=== PATIENT | male | born 1975 | race Caucasian/White ===

== ENCOUNTER 2020-08-09 19:14 | Emergency (ER) | payer SELFPAY ==
[2020-08-09] MEDS ORDERED: IBUPROFEN 400 MG TAB ONE (20:16)
--- NOTE | 2020-08-09 21:18 | ER ---
Nurse's Notes [facility] Name: Ankur Owens Age: 44 yrs Sex: Male : 1975 Arrival Date: 08/09/2020 Time: 19:17 Bed 2 Private MD: Diagnosis: Pain in right wrist-from fall Presentation: 08/09 19:36 Chief complaint: Patient states: Tripped last night. R wrist pain since. No LOC or head ll1 injury. Coronavirus screen: Client denies travel out of the [place] in the last 14 days. At this time, the client does not indicate any symptoms associated with coronavirus-19. Ebola Screen: Patient denies travel to an Ebola-affected area in the 21 days before illness onset. Initial Sepsis Screen: Does the patient meet any 2 criteria? HR > 90 bpm. No. Patient's initial sepsis screen is negative. Does the patient have a suspected source of infection? Yes: Bone or joint infection. Risk Assessment: Do you want to hurt yourself or someone else? Patient reports no desire to harm self or others. Onset of symptoms was August 08, 2020. 19:36 Method Of Arrival: Ambulatory ll1 19:36 Acuity: MELI 4 ll1 Historical: - Allergies: 19:38 No Known Allergies; ll1 - PMHx: 19:38 [place]; ll1 - PSHx: 19:38 Appendectomy; ll1 - Immunization history:: Flu vaccine is up to date. - Social history:: Smoking status: Reported history of juuling and/or vaping. Patient/guardian denies using tobacco. Screenin:24 Abuse screen: Denies threats or abuse. Denies injuries from another. Nutritional lp1 screening: No deficits noted. Tuberculosis screening: No symptoms or risk factors identified. Fall Risk None identified. Assessment: 20:05 General: Appears in no apparent distress. Behavior is calm, cooperative, appropriate lp1 for age. Pain: Complains of pain in lateral aspect of right hand and dorsal aspect of right wrist Pain currently is 6 out of 10 on a pain scale. Quality of pain is described as aching. Neuro: No deficits noted. Cardiovascular: No deficits noted. Respiratory: No deficits noted. GI: No signs and/or symptoms were reported involving the gastrointestinal system. : No signs and/or symptoms were reported regarding the genitourinary system. EENT: No signs and/or symptoms were reported regarding the EENT system. Derm: Skin is pink, warm \T\ dry. Musculoskeletal: Swelling present in lateral aspect of right hand and dorsal aspect of right wrist. 20:50 Reassessment: Patient reports pain continued to right wrist, no relief with medication lp1 administered; Provider notified. 21:55 Reassessment: Splint checked by KOLE Phillips. lp1 Vital Signs: 19:36 BP 135 / 77; Pulse 90; Resp 18; Temp 98.0; Pulse Ox 100% ; Weight 97.52 kg; Height 5 ll1 ft. 10 in. (177.80 cm); Pain 7/10; 19:36 Body Mass Index 30.85 (97.52 kg, 177.80 cm) ll1 ED Course: 19:17 Patient arrived in ED. ag3 19:38 Triage completed. ll1 19:38 Arm band placed on Patient placed in an exam room, on a stretcher. ll1 19:42 Addi Samano PA is PHCP. cp 19:42 Catalino Hughes MD is Attending Physician. cp 20:00 Karen Garcia RN is Primary Nurse. lp1 20:24 Patient has correct armband on for positive identification. lp1 20:24 No provider procedures requiring assistance completed. Patient did not have IV access lp1 during this emergency room visit. 20:45 XRAY Wrist RIGHT 3 view In Process Unspecified. EDMS 21:16 River Roland MD is Referral Physician. cp 21:48 Orthoglass splint: Thumb spica splint applied on right forearm. oe Administered Medications: 20:05 Drug: Ibuprofen 800 mg Route: PO; lp1 20:50 Follow up: Response: Pain is unchanged, physician notified lp1 Outcome: 21:17 Discharge ordered by . cp 21:55 Discharged to home ambulatory. lp1 21:55 Condition: good 21:55 Discharge instructions given to patient, Instructed on discharge instructions, follow up and referral plans. medication usage, Demonstrated understanding of instructions, follow-up care, medications, Prescriptions given X 1. 21:56 Patient left the ED. lp1 Signatures: Dispatcher [employer] EDID Kaern Garcia RN RN lp1 Addi Samano PA PA cp Aj, MattElizabeth Johnson ag3 Kin Cochran, RN RN ll1
--- NOTE | 2020-08-09 21:18 | EDPHYS ---
Physician Documentation [facility] Name: Ankur Owens Age: 44 yrs Sex: Male : 1975 Arrival Date: 08/09/2020 Time: 19:17 Bed 2 Private MD: ED Physician Catalino Hughes HPI: 08/09 20:05 This 44 yrs old Male presents to ER via Ambulatory with complaints of Wrist cp Pain. 20:05 The patient or guardian reports pain, swelling, tenderness. The complaints affect the cp right wrist diffusely. Context: resulted from a fall, on an outstretched hand. Onset: The symptoms/episode began/occurred today. Historical: - Allergies: 19:38 No Known Allergies; ll1 - PMHx: 19:38 [place]; ll1 - PSHx: 19:38 Appendectomy; ll1 - Immunization history:: Flu vaccine is up to date. - Social history:: Smoking status: Reported history of juuling and/or vaping. Patient/guardian denies using tobacco. ROS: 20:15 MS/extremity: Positive for pain, swelling, tenderness, of the right wrist, Negative for cp decreased range of motion, deformity. 20:15 Constitutional: Negative for body aches, chills, fever. cp 20:15 Skin: Negative for rash. 20:15 All other systems are negative. Exam: 20:25 Hand exam: Exam is positive for bony tenderness, pain, snuff box/scaphoid tenderness, cp swelling, tenderness. 20:25 Skin: cellulitis, is not appreciated, no rash present. cp 20:25 Constitutional: The patient appears in no acute distress, alert, awake, non-toxic, well developed, well nourished. Vital Signs: 19:36 BP 135 / 77; Pulse 90; Resp 18; Temp 98.0; Pulse Ox 100% ; Weight 97.52 kg; Height 5 ll1 ft. 10 in. (177.80 cm); Pain 7/10; 19:36 Body Mass Index 30.85 (97.52 kg, 177.80 cm) ll1 Procedures: 21:55 Splinting: Splint applied to right wrist using Orthoglass splint, thumb spica type. cp applied by tech. Examined by me, post splint application: neurovascular intact, Patient tolerated well. MDM: 19:57 Patient medically screened. cp 21:00 Differential diagnosis: dislocation, closed fracture, contusion. cp 21:15 Data reviewed: vital signs, nurses notes, radiologic studies, plain films, and as a cp result, I will discharge patient. 21:16 Test interpretation: by ED physician or midlevel provider: xrays of right wrist cp negative for acute fracture. 21:16 Counseling: I had a detailed discussion with the patient and/or guardian regarding: the cp historical points, exam findings, and any diagnostic results supporting the discharge/admit diagnosis, radiology results, the need for outpatient follow up, a hand specialist, to return to the emergency department if symptoms worsen or persist or if there are any questions or concerns that arise at home. 08/09 20:00 Order name: XRAY Wrist RIGHT 3 view cp 08/09 21:00 Order name: Thumb Spica Splint: right, orthoglass type; Complete Time: 21:56 cp Administered Medications: 20:05 Drug: Ibuprofen 800 mg Route: PO; lp1 20:50 Follow up: Response: Pain is unchanged, physician notified lp1 Disposition: 22:00 Chart complete. cp Disposition: 08/09/20 21:17 Discharged to Home. Impression: Pain in right wrist - from fall. - Condition is Stable. - Discharge Instructions: Wrist Pain. - Prescriptions for Naprosyn 500 mg Oral Tablet - take 1 tablet by ORAL route 2 times per day take with food; 20 tablet. - Medication Reconciliation Form, Thank You Letter, Antibiotic Education, Prescription Opioid Use, School release form, Work release form form. - Follow up: River Roland MD; When: 2 - 3 days; Reason: Recheck today's complaints. - Problem is new. - Symptoms have improved. Addendum: 08/11/2020 02:54 Co-signature as Attending Physician, Catalino Hughes MD. m h7 Signatures: Dispatcher [employer] EDMS Karen Garcia RN RN lp1 Addi Samano PA PA cp Kin Cochran RN RN ll1 Catalino Hughes MD MD mh7 Corrections: (The following items were deleted from the chart) 08/09 21:00 20:59 Splint - Wrist ordered. cp cp 21:56 21:17 08/09/2020 21:17 Discharged to Home. Impression: Pain in right wrist - from fall. lp1 Condition is Stable. Forms are Medication Reconciliation Form, Thank You Letter, Antibiotic Education, Prescription Opioid Use. Follow up: River Roland; When: 2 - 3 days; Reason: Recheck today's complaints. Problem is new. Symptoms have improved. cp
--- NOTE | 2020-08-09 22:57 | RAD REPORT ---
EXAM DESCRIPTION: RAD - Wrist Right 3 View - 08/09/2020 8:45 pm CLINICAL HISTORY: fall;Pain COMPARISON: No comparisons FINDINGS: Faint transverse lucent line is present in the distal radius. No periosteal reaction. No h istory of remote wrist fracture provided. There is an old ununited ulna styloid fracture. No distract ion or angulation at the suspected distal radius fracture site. No foreign body or other soft tissue abnormality. IMPRESSION: Suspected acute nondisplaced fracture involving the distal right radius near the radial styloid.
[2020-08-12 04:04] VITALS: BP 135/77; TEMP 98; O2SAT 100
== END 2020-08-09 21:56 | disposition home or self-care (01) ==
LOC: ER 19:14
DX: M25.531 Pain in right wrist (principal); W01.0XXA Fall on same level from slipping, tripping and stumbling without subsequent striking against object, initial encounter; Y93.9 Activity, unspecified; Y92.9 Unspecified place or not applicable; Z87.891 Personal history of nicotine dependence
CPT/HCPCS: 99284

== ENCOUNTER 2020-12-19 09:42 | Emergency (ER) | payer SELFPAY ==
[2020-12-19 11:25] LABS: Absolute Lymphocytes (CBC) 2.3 K/uL (0.7-4.9); Basophils % 0.4 % (0-1.3); Hematocrit 40.5 % (39.6-49.0); Lymphocytes % 25.9 % (15.3-44.8); MPV 7.9 fL (7.6-11.3); RBC Red Blood Cell Count 4.45 M/uL (4.33-5.43)
[2020-12-19 11:44] LABS: BUN Blood Urea Nitrogen 18 mg/dL (7-18); Bicarbonate 27 mmol/L (21-32); Glucose Level 91 mg/dL (74-106); Potassium 4.2 mmol/L (3.5-5.1); Sodium Level 137 mmol/L (136-145); Thyroid Stimulating Hormone 0.966 uIU/mL (0.360-3.740)
--- NOTE | 2020-12-19 12:20 | ER ---
Nurse's Notes [facility] Name: Ankur Owens Age: 45 yrs Sex: Male : 1975 Arrival Date: 12/19/2020 Time: 09:46 Bed 14 Private MD: Diagnosis: Essential (primary) hypertension Presentation: 12/19 09:52 Chief complaint: Sent from Dr. Leung's office for BP 148/108. Coronavirus screen: At this time, the client does not indicate any symptoms associated with coronavirus-19. Ebola Screen: No symptoms or risks identified at this time. Initial Sepsis Screen: Does the patient meet any 2 criteria? No. Patient's initial sepsis screen is negative. Does the patient have a suspected source of infection? No. Patient's initial sepsis screen is negative. Risk Assessment: Do you want to hurt yourself or someone else? Patient reports no desire to harm self or others. Onset of symptoms was December 19, 2020. 09:52 Method Of Arrival: Ambulatory hb 09:52 Acuity: MELI 3 hb Historical: - Allergies: 09:55 No Known Allergies; hb - PMHx: 09:55 [place]; hb - PSHx: 09:55 Appendectomy; hb - Immunization history:: Adult Immunizations up to date. - Social history:: Smoking status: Reported history of juuling and/or vaping. Screenin:48 Abuse screen: Denies threats or abuse. Denies injuries from another. Nutritional ca1 screening: No deficits noted. Tuberculosis screening: No symptoms or risk factors identified. Fall Risk IV access (20 points). Assessment: 10:31 General: Appears in no apparent distress. comfortable, Behavior is calm, cooperative, ca1 appropriate for age. Pain: Denies pain. Neuro: Level of Consciousness is awake, alert, obeys commands, Oriented to person, place, time, situation. Cardiovascular: Heart tones S1 S2 present Capillary refill < 3 seconds Patient's skin is warm and dry. Respiratory: Airway is patent Respiratory effort is even, unlabored, Respiratory pattern is regular, symmetrical, Breath sounds are clear bilaterally. GI: Abdomen is flat, non-distended, Bowel sounds present X 4 quads. Abd is soft and non tender X 4 quads. : No signs and/or symptoms were reported regarding the genitourinary system. EENT: No signs and/or symptoms were reported regarding the EENT system. Derm: Skin is intact, is healthy with good turgor, Skin is pink, warm \T\ dry. Musculoskeletal: Circulation, motion, and sensation intact. Capillary refill < 3 seconds. 11:37 Reassessment: Patient appears in no apparent distress at this time. Patient and/or ca1 family updated on plan of care and expected duration. Pain level reassessed. Patient is alert, oriented x 3, equal unlabored respirations, skin warm/dry/pink. 12:26 Reassessment: Patient appears in no apparent distress at this time. Patient is alert, ca1 oriented x 3, equal unlabored respirations, skin warm/dry/pink. 12:33 Reassessment: Patient appears in no apparent distress at this time. Patient is alert, ca1 oriented x 3, equal unlabored respirations, skin warm/dry/pink. Vital Signs: 09:52 BP 147 / 109; Pulse 82; Resp 16; Temp 97.2; Pulse Ox 98% on R/A; Weight 94.35 kg; hb Height 5 ft. 10 in. (177.80 cm); Pain 0/10; 10:31 BP 119 / 87; Pulse 97; Resp 18 S; Pulse Ox 100% on R/A; ca1 11:39 BP 109 / 74; Pulse 82; Resp 18 S; Pulse Ox 99% on R/A; ca1 12:33 BP 128 / 81; Pulse 83; Resp 18 S; Pulse Ox 100% on R/A; ca1 09:52 Body Mass Index 29.84 (94.35 kg, 177.80 cm) hb ED Course: 09:46 Patient arrived in ED. as 09:54 Triage completed. hb 09:55 Arm band placed on. hb 10:31 Brianda Zeng, MAHESH is Primary Nurse. ca1 10:38 Katherine Pierson FNP-C is PHCP. kb 10:38 Addi Mckeon MD is Attending Physician. kb 10:48 Patient has correct armband on for positive identification. Placed in gown. Bed in low ca1 position. Call light in reach. Side rails up X 1. Pulse ox on. NIBP on. Warm blanket given. 11:12 No provider procedures requiring assistance completed. Initial lab(s) drawn, by ca, ca1 sent to lab. Inserted saline lock: 20 gauge in right antecubital area, using aseptic technique. Blood collected. 12:34 IV discontinued, intact, bleeding controlled, No redness/swelling at site. Pressure ca1 dressing applied. Administered Medications: No medications were administered Outcome: 12: Discharge ordered by MD. hendricks :34 Discharged to home ambulatory. ca1 12:34 Condition: stable 12:34 Discharge instructions given to patient, Instructed on discharge instructions, follow up and referral plans. Demonstrated understanding of instructions, follow-up care. 12:34 Patient left the ED. ca1 Signatures: Katherine Pierson, EMILIANO-Marianna CUMMINGS-Elza Woods as Ngozi Carlos, RN RN Brianda Zeng RN RN ca1
--- NOTE | 2020-12-19 12:20 | EDPHYS ---
Physician Documentation [facility] Name: Ankur Owens Age: 45 yrs Sex: Male : 1975 Arrival Date: 12/19/2020 Time: 09:46 Bed 14 Private MD: NICOLLE Physician Addi Mckeon HPI: 12/19 16:03 This 45 yrs old Male presents to ER via Ambulatory with complaints of High kb Blood Pressure. 16:03 The patient has elevated blood pressure and discovered this at a physician's office, kb and sent to the emergency department for evaluation. Onset: The symptoms/episode began/occurred today. Associated signs and symptoms: The patient has no apparent associated signs or symptoms. Severity of symptoms: At its worst the blood pressure was moderate, in the emergency department the blood pressure is unchanged. The patient has experienced similar episodes in the past, a few times. The patient has been recently seen by a physician:. Pt was at Dr Leung's office for normal check up and his blood pressure was high so they sent him here. . Historical: - Allergies: 09:55 No Known Allergies; hb - PMHx: 09:55 [place]; hb - PSHx: 09:55 Appendectomy; hb - Immunization history:: Adult Immunizations up to date. - Social history:: Smoking status: Reported history of juuling and/or vaping. ROS: 16:00 Constitutional: Negative for fever, chills, and weight loss, Eyes: Negative for injury, kb pain, redness, and discharge, Cardiovascular: Negative for chest pain, palpitations, and edema, Respiratory: Negative for shortness of breath, cough, wheezing, and pleuritic chest pain, Abdomen/GI: Negative for abdominal pain, nausea, vomiting, diarrhea, and constipation, MS/Extremity: Negative for injury and deformity, Skin: Negative for injury, rash, and discoloration, Neuro: Negative for headache, weakness, numbness, tingling, and seizure. Exam: 16:00 Constitutional: This is a well developed, well nourished patient who is awake, alert, kb and in no acute distress. Head/Face: Normocephalic, atraumatic. Cardiovascular: Regular rate and rhythm with a normal S1 and S2. No gallops, murmurs, or rubs. No pulse deficits. Respiratory: Respirations even and unlabored. No increased work of breathing, no retractions or nasal flaring. Abdomen/GI: Soft, non-tender. No distention Skin: Warm, dry with normal turgor. Normal color. MS/ Extremity: Pulses equal, no cyanosis. Neurovascular intact. Full, normal range of motion. Neuro: Awake and alert, GCS 15, oriented to person, place, time, and situation. Moves all extremities. Normal gait. 16:00 ECG was reviewed by the Attending Physician. Vital Signs: 09:52 BP 147 / 109; Pulse 82; Resp 16; Temp 97.2; Pulse Ox 98% on R/A; Weight 94.35 kg; hb Height 5 ft. 10 in. (177.80 cm); Pain 0/10; 10:31 BP 119 / 87; Pulse 97; Resp 18 S; Pulse Ox 100% on R/A; ca1 11:39 BP 109 / 74; Pulse 82; Resp 18 S; Pulse Ox 99% on R/A; ca1 12:33 BP 128 / 81; Pulse 83; Resp 18 S; Pulse Ox 100% on R/A; ca1 09:52 Body Mass Index 29.84 (94.35 kg, 177.80 cm) hb MDM: 10:38 Patient medically screened. kb 16:00 Data reviewed: vital signs, nurses notes. Data interpreted: Pulse oximetry: on room air kb is 100 %. Interpretation: normal. Counseling: I had a detailed discussion with the patient and/or guardian regarding: the historical points, exam findings, and any diagnostic results supporting the discharge/admit diagnosis, lab results, the need for outpatient follow up, a family practitioner, to return to the emergency department if symptoms worsen or persist or if there are any questions or concerns that arise at home. 12/19 10:54 Order name: CBC with Diff; Complete Time: 11:42 kb 12/19 10:54 Order name: Basic Metabolic Panel; Complete Time: 11:52 kb 12/19 10:54 Order name: TSH; Complete Time: 11:52 kb 12/19 10:54 Order name: IV Start; Complete Time: 11:13 kb 12/19 10:54 Order name: EKG; Complete Time: 10:55 kb 12/19 10:54 Order name: EKG - Nurse/Tech; Complete Time: 11:47 kb EC:00 Rate is 80 beats/min. Rhythm is regular. QRS [place] is Normal. [place] interval is normal at kb 162 msec. QRS interval is normal at 86 msec. QT interval is normal at 374 msec. Administered Medications: No medications were administered Disposition: 12/20 08:03 Co-signature as Attending Physician, Adid Mckeon MD I agree with the assessment and [facility] plan of care. Disposition: 12/19/20 12:19 Discharged to Home. Impression: Essential (primary) hypertension. - Condition is Stable. - Discharge Instructions: Hypertension, [id number], How to Take Your Blood Pressure, [id number]. - Medication Reconciliation Form, Thank You Letter, Antibiotic Education, Prescription Opioid Use form. - Follow up: Emergency Department; When: As needed; Reason: Worsening of condition. Follow up: Private Physician; When: 2 - 3 days; Reason: Recheck today's complaints, Continuance of care, Re-evaluation by your physician. Signatures: Dispatcher [employer] EDPA Katherine Pierson, ORE MINER BLASTING-C ORE MINER BLASTING-Addi Lord MD MD cha Baxter, Heather, MAHESH RN Brianda Zeng RN RN ca1 Corrections: (The following items were deleted from the chart) 12/19 12:34 12:19 12/19/2020 12:19 Discharged to Home. Impression: Essential (primary) ca1 hypertension. Condition is Stable. Forms are Medication Reconciliation Form, Thank You Letter, Antibiotic Education, Prescription Opioid Use. Follow up: Emergency Department; When: As needed; Reason: Worsening of condition. Follow up: Private Physician; When: 2 - 3 days; Reason: Recheck today's complaints, Continuance of care, Re-evaluation by your physician. kb
[2020-12-19 13:00] VITALS: TEMP 97.2
[2020-12-19 13:04] VITALS: BP 128/81; O2SAT 100
--- NOTE | 2020-12-20 07:24 | EKG ---
Test Date: 2020-12-19 Test Time: 11:45:[address] Liaison: ALEIDA MEASUREMENT RESULTS: Intervals: Rate: 80 NC: 162 QRSD: 86 QT: 374 QTc: 431 Gregory: P: 60 NC: 162 QRS: 70 T: 57 INTERPRETIVE STATEMENTS: Normal sinus rhythm Normal ECG Compared to ECG 12/18/2010 04:33:46 No significant changes Electronically Signed On 12-20-20 07:22:05 CDT by Brayden Sargent
== END 2020-12-19 12:34 | disposition home or self-care (01) ==
LOC: ER 09:42
DX: I10 Essential (primary) hypertension (principal); F17.290 Nicotine dependence, other tobacco product, uncomplicated; H91.90 Unspecified hearing loss, unspecified ear
CPT/HCPCS: 36415; 80048; 84443; 85025; 93005; 99284

== ENCOUNTER 2025-05-23 12:30 | Observation (INO) | payer OTHER ==
--- OUTSIDE RECORDS SUMMARY | 2025-05-23 12:36 | XMS REPORT | Continuity of Care Document ---
Author Name Unknown Address [address] [facility] [address] [place] [address] [facility] Address [address] [facility] [address] [place] [address] Care Team Providers Care Game Master Name Role Phone PCP, PATIENT DOES NOT HAVE A Primary Care Physic carrie Unavailable KIM MACK Attending Clinician Unavailable KRISTA BOLES Attending Clinician Unavailable RICCARDO ELLIS Attending Clinician Unavailable RAMAN MIKE Attending Clinician Unavailable MD YOVANI Attending Clinician Unavailab SANTOS Marcos Attending Clinician Unava ilable [id number] Attending Clinician Unavailable ANGEL GARCIA Attending Clinician Unavailable HERMINIO BAUER Attending Clinician Unavailab le FLOOR, LAB HEM-ONC 2ND Attending Clinician Unava ilable DARIAN LEWIS Attending Clinician Unavailable LAB90 Attending Clinician Unavailable MARY LOU MARTÍNEZ Attending Clinician Unavailable SASKIA PURCELL Attending Clinician Unava ilable Madison Parekh Attending Clinician MADISON BORDEN Attending Clinician Unavailable Payers Payer Name Policy Type Policy Number Effective Date Expirati on Date Source GREGORIO 2 [id number] 2022 00:00:00 Problems Condition Name Condition Details Condition Category Status Onset Date Resolution Date Last Treatment Date Treating Clinician Comments Source Tachycardi a Tachycardi a Disease Active 2022-08 00:00: 00 Sue Sedonnold - Externa l 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 2022-08 00:00: 00 Sue Sedonnold - Externa l Hyperhidro sis Hyperhidro sis Disease Active 2022-08 00:00: 00 Sue Chilelold - Externa l Elevated serum globulin level Elevated serum globulin level Disease Active 2022-08 00:00: 00 Sue Chilelold - Externa l 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 2022-08 00:00: 00 Sue Chilelold - Externa l Proteinuri a Proteinuri a Disease Active 2022-08 00:00: 00 Sue Chilelold - Externa l Trigger little finger of right hand Trigger little finger of right hand Disease Active 10-12 00:00: 00 Sue Chilelold - Externa l Acute pain of right shoulder Acute pain of right shoulder Disease Active 10-12 00:00: 00 Sue Chilelold - Externa l Acute pain of right shoulder Acute pain of right shoulder Disease Active 10-12 00:00: 00 Sue Chilelold - Externa l Numbness of right hand Numbness of right hand Disease Active 10-12 00:00: 00 Sue Niceybold - Externa l No known active problems No known active problems Disease [facility] Allergies, Adverse Reactions, Alerts Allergy Name Allergy Type Status Severity Reaction(s) Onset Date Inactive Date Treating Clinician Comments Source NO KNOWN ALLERGIE S Drug Class Active [facility] Social History Social Habit Start Date Stop Date Quantity Comments Source Gender identity Lisa Costa - External Sexual orientation K anna marie Costa - External History of tobacco use Cigarette Smoker Sue jc - External Alcoholic beverage intake 2025-03-04 00:00:00 2025-03-04 00:00:00 Ex-drinker (finding) Sue Costa - External History of Social function 2025-01-11 00:00:00 2025-01-11 00:00:00 Sue Costa - External Alcohol intake 2023-07-19 00:00:00 2023-07-19 00:00:00 Ex-drinker (finding) Sue Costa - External Cigarette pack-years 2023-03-30 00:00:00 2023-03-30 00:00:00 Sue Costa - External Tobacco use and exposure 2023-03-30 00:00:00 2023-03-30 00:00:00 Smokeless tobacco non-user Sue Costa - External Cigarettes smoked current (pack per day) - Reported 2023-03-30 00:00:00 2023-03-30 00:00:00 Sue Costa - External Sex 2022-10-11 08:45:06 2022-10-11 08:45:06 Male (finding) Sue Costa - External Exposure to SARS-CoV-2 (event) 2022-02-23 00:00:00 2022-03-05 12:42:00 Yes [facility] Sex assigned at 1975 00:00:00 1975 00:00:00 Sue Costa - External Smoking Status Start Date Stop Date Source Tobacco smoking consumption unknown [facility] Ex-smoker 2023-03-30 00:00:00 2023-03-30 00:00:00 Sue Costa - External Smokes tobacco daily 2022-10-12 00:00:00 Sue Costa - External Medications Ordered Medication Name Filled Medication Name Start Date Stop Date Current Medication? Ordering Clinician Indication Dosage Frequency Signature (SIG) Comments Components Source hydrOXYzine HCl 25 MG oral Tablet 03-04 00:00: 00 Yes [id number] 25mg Take 1 tablet (25 mg total) by mouth every night at bedtime. Sue Costa - Externa l Buprenorphi ne HCl-Naloxon e HCl 8-2 MG sublingual Film - 00:00: 00 03-04 00:00 :[address] 1 FILM TWICE A DAY BY SUBLINGUAL ROUTE NEEDED FOR 28 DAYS. Sue garcía Tizanidine HCl 4 MG oral Tablet 02-14 00:00: 00 03-04 00:00 :00 No TAKE 1 TABLET BY MOUTH TWICE A DAY NEEDED FOR 28 DAYS Sue garcía Albuterol HFA 108 (90 Base) MCG/ACT IN AERS 02-06 00:00: 00 03-04 00:00 :00 No INHALE 2 PUFFS EVERY 4 TO 6 HOURS NEEDED FOR SHORTNESS OF BREATH OR WHEEZING Sue garcía Cyclobenzap rine HCl 10 MG oral Tablet 01-17 00:00: 00 03-04 00:00 :00 No TAKE 1 TABLET BY MOUTH EVERY DAY NEEDED FOR 28 DAYS Sue garcía Buprenorphi ne HCl-Naloxon e HCl (SUBOXONE SL) 01-11 08:10: 58 01-11 00:00 :[address] under the tongue 2 times daily. Sue garcía Sertraline HCl 25 MG oral Tablet 01-11 00:00: 00 03-04 00:00 :00 No [id number] 25mg QD Take 1 tablet (25 mg total) by mouth daily. Sue garcía Propranolol HCl 20 MG oral Tablet 01-11 00:00: 00 03-04 00:00 :00 No [id number] 20mg [id number] 3D Take 1 tablet (20 mg total) by mouth 3 times daily. Sue garcía Clonazepam 0.25 MG oral TABLET DISPERSIBLE 01-11 00:00: 00 03-04 00:00 :00 No [id number] .25mg Q.5D Take 1 tablet (0.25 mg total) by mouth 2 times daily as needed. Sue garcía Cyclobenzap rine HCl 10 MG oral Tablet 12-03 00:00: 00 01-11 00:00 :00 No TAKE 1 TABLET EVERY DAY BY ORAL ROUTE NEEDED FOR 35 DAYS. Sue garcía Buprenorphi ne HCl-Naloxon e HCl 8-2 MG sublingual Film 4-14 00:00: 00 01-11 00:00 :[address] 1 FILM TWICE A DAY BY SUBLINGUAL ROUTE NEEDED FOR 35 DAYS. Sue garcía Glycopyrrol ate 1 MG oral Tablet 2022-08 00:00: 00 01-11 00:00 :00 No [id number] TAKE 1 TABLETS BY MOUTH TWICE DAILY AND INCREASE WEEKLY UP TO 3 TABLETS TWICE DAILY NEEDED DISCUSSED LONG SIDE EFFECTES ARE NOT TOO BOTHERSOME . Sue garcía Buprenorphi ne HCl-Naloxon e HCl (SUBOXONE SL) 2022-08 11:26: [address] under the tongue 2 times daily. Sue garcía Metoprolol Succinate 25 MG oral TABLET SR 24 HR 2022-08 00:00: 00 01-11 00:00 :00 No [id number] 25mg QD Take 1 tablet (25 mg total) by mouth daily. Sue garcía Buprenorphi ne HCl-Naloxon e HCl (SUBOXONE SL) 2022-08 08:13: [address] under the tongue. Sue garcía Glycopyrrol ate 1 MG oral Tablet 2022-08 00:00: 00 Yes [id number] Start taking 1mg PO BID and increase weekly up to 3mg PO BID PRN as discussed as long as side effects are not too bothersome . Sue garcía Buprenorphi ne HCl-Naloxon e HCl (SUBOXONE SL) 2022-08 21:51: [address] under the tongue. Sue garcía Metoprolol Succinate 25 MG oral TABLET SR 24 HR 2022-08 00:00: 00 Yes [id number] 25mg Take 1 tablet (25 mg total) by mouth daily. Sue agrcía Glycopyrrol ate 1 MG oral Tablet 04-18 00:00: 00 06-17 00:00 :00 No [id number] 1mg TAKE 1 TABLET (1 MG TOTAL) BY MOUTH 3 TIMES DAILY Sue garcía Glycopyrrol ate 1 MG oral Tablet 804 00:00: 00 Yes [id number] 1mg Take 1 tablet (1 mg total) by mouth 3 times daily Sue garcía Cyclobenzap rine HCl 10 MG oral Tablet 03-14 00:00: 00 Yes TAKE 1 TABLET BY MOUTH EVERY DAY NEEDED FOR 28 DAYS Sue garcía Buprenorphi ne HCl-Naloxon e HCl 8-2 MG sublingual Film 03-14 00:00: 00 06-17 00:00 :00 No 1{film} Place 1 film under the tongue 2 times daily Sue garcía Tizanidine HCl 2 MG oral Tablet 3-06 00:00: 00 06-17 00:00 :00 No [id number] TAKE 1 TABLET BY MOUTH NIGHTLY NEEDED FOR MUSCLE SPASMS. Sue garcía Tizanidine HCl 2 MG oral Tablet 10-12 00:00: 00 Yes [id number] 2mg QD Take 1 tablet (2 mg total) by mouth nightly as needed for muscle spasms Sue garcía Meloxicam 15 MG oral Tablet 10-12 00:00: 00 06-17 00:00 :00 No [id number] 15mg QD Take 1 tablet (15 mg total) by mouth daily as needed for pain Sue garcía molnupiravi r 200 mg capsule 03-05 00:00: 00 Yes [id number] 800mg Take 4 capsules by mouth every 12 (twelve) hours. [facility] Immunizations Ordered Immunization Name Filled Immunization Name Date Status Comments Source SARS-COV-2 COVID-19 PFIZER VACCINE 2021-01-10 00:00:00 Completed [facility] SARS-COV-2 COVID-19 PFIZER VACCINE 2021-01-10 00:00:00 Completed [facility] SARS-COV-2 COVID-19 PFIZER VACCINE 2020-12-13 00:00:00 Completed [facility] SARS-COV-2 COVID-19 PFIZER VACCINE 2020-12-13 00:00:00 Completed [facility] Influenza, Injectable, Mdck, Preservative Free, Quadrivalent Unknown Completed Sue Seybold - External Pneumococcal Vaccine, Conjugate 20 Unknown Completed Sue Seybold - External Influenza, Injectable, Mdck, Preservative Free, Quadrivalent Unknown Completed Sue Seybold - External Pneumococcal Vaccine, Conjugate 20 Unknown Completed Sue Seybold - External Vital Signs Vital Name Observation Time Observation Value Comments S fina Systolic blood pressure 2025-03-04 13:21:00 132 mm[Hg] Sue Seybo ld - External Diastolic blood pressure 2025-03-04 13:21:00 76 mm[Hg] Sue Seybo ld - External Heart rate 2025-03-04 13:21:00 111 /min Kelse y Seybold - External Body temperature 2025-03-04 13:21:00 36.56 Rosio Sue Seybold - External Respiratory rate 2025-03-04 13:21:00 15 /min Sue Seybold - External Body height 2025-03-04 13:21:00 177.8 cm Lisa ey Seybold - External Body weight 2025-03-04 13:21:00 107.321 kg Lisa ey Seybold - External BMI 2025-03-04 13:21:00 33.95 kg/m2 Lisa ey Seybold - External Oxygen saturation in Arterial blood by Pulse oximetry 2025-03-04 13:21:00 96 /min Sue Seybo ld - External Systolic blood pressure 2025-01-11 13:06:00 118 mm[Hg] Sue Seybo ld - External Diastolic blood pressure 2025-01-11 13:06:00 76 mm[Hg] Sue Seybo ld - External Heart rate 2025-01-11 13:06:00 114 /min Kelse y Seybold - External Body temperature 2025-01-11 13:06:00 37.06 Rosio Sue Seybold - External Respiratory rate 2025-01-11 13:06:00 15 /min Sue Seybold - External Body height 2025-01-11 13:06:00 177.8 cm Lisa ey Seybold - External Body weight 2025-01-11 13:06:00 97.523 kg Lisa ey Seybold - External BMI 2025-01-11 13:06:00 30.85 kg/m2 Lisa ey Seybold - External Oxygen saturation in Arterial blood by Pulse oximetry 2025-01-11 13:06:00 96 /min Sue Seybo ld - External Systolic blood pressure 2023-07-19 17:25:00 129 mm[Hg] Sue Seybo ld - External Diastolic blood pressure 2023-07-19 17:25:00 86 mm[Hg] Sue Seybo ld - External Heart rate 2023-07-19 17:25:00 91 /min Kelse y Seybold - External Body temperature 2023-07-19 17:25:00 36.44 Rosio Sue Seybold - External Respiratory rate 2023-07-19 17:25:00 16 /min Sue Seybold - External Body height 2023-07-19 17:25:00 177.8 cm Lisa ey Seybold - External Body weight 2023-07-19 17:25:00 97.523 kg Lisa ey Seybold - External BMI 2023-07-19 17:25:00 30.85 kg/m2 Lisa ey Seybold - External Oxygen saturation in Arterial blood by Pulse oximetry 2023-07-19 17:25:00 99 /min Sue Seybo ld - External Systolic blood pressure 2023-06-24 17:13:00 112 mm[Hg] Sue Seybo ld - External Diastolic blood pressure 2023-06-24 17:13:00 60 mm[Hg] Sue Seybo ld - External Heart rate 2023-06-24 17:13:00 82 /min Kelse y Seybold - External Body temperature 2023-06-24 17:13:00 36.22 Rosio Sue Seybold - External Respiratory rate 2023-06-24 17:13:00 15 /min Sue Seybold - External Body height 2023-06-24 17:13:00 175.3 cm Lisa ey Seybold - External Body weight 2023-06-24 17:13:00 99.791 kg Lisa ey Seybold - External BMI 2023-06-24 17:13:00 32.49 kg/m2 Lisa ey Seybold - External Body temperature 2023-06-17 20:30:00 36.61 Rosio Sue Seybold - External Respiratory rate 2023-06-17 20:30:00 15 /min Sue Seybold - External Body height 2023-06-17 20:30:00 175.3 cm Lisa ey Seybold - External Body weight 2023-06-17 20:30:00 92.534 kg Lisa ey Seybold - External BMI 2023-06-17 20:30:00 30.13 kg/m2 Lisa ey Seybold - External Systolic blood pressure 2023-06-17 20:30:00 134 mm[Hg] Sue Seybo ld - External Diastolic blood pressure 2023-06-17 20:30:00 104 mm[Hg] Sue Seybo ld - External Heart rate 2023-06-17 20:30:00 120 /min Kelse y Seybold - External Systolic blood pressure 2023-03-30 18:11:00 120 mm[Hg] Sue Seybo ld - External Diastolic blood pressure 2023-03-30 18:11:00 86 mm[Hg] Sue Seybo ld - External Heart rate 2023-03-30 18:11:00 97 /min Kelse y Seybold - External Body temperature 2023-03-30 18:11:00 36.61 Rosio Sue Seybold - External Respiratory rate 2023-03-30 18:11:00 15 /min Sue Seybold - External Body height 2023-03-30 18:11:00 175.3 cm Lisa ey Seybold - External Body weight 2023-03-30 18:11:00 97.07 kg Lisa ey Seybold - External BMI 2023-03-30 18:11:00 31.60 kg/m2 Lisa ey Seybold - External Oxygen saturation in Arterial blood by Pulse oximetry 2023-03-30 18:11:00 99 /min Sue Seybo ld - External Systolic blood pressure 2023-03-25 20:52:00 130 mm[Hg] Sue Seybo ld - External Diastolic blood pressure 2023-03-25 20:52:00 72 mm[Hg] Sue Seybo ld - External Heart rate 2023-03-25 20:52:00 104 /min Normse y Seybold - External Body temperature 2023-03-25 20:52:00 36.89 Rosio Sue Seybold - External Body height 2023-03-25 20:52:00 175.3 cm Lisa ey Seybold - External Body weight 2023-03-25 20:52:00 94.53 kg Lisa ey Seybold - External BMI 2023-03-25 20:52:00 30.78 kg/m2 Lisa ey Seybold - External Oxygen saturation in Arterial blood by Pulse oximetry 2023-03-25 20:52:00 95 /min Sue Niceybo ld - External Systolic blood pressure 2022-10-12 21:17:00 138 mm[Hg] Sue Seybo ld - External Diastolic blood pressure 2022-10-12 21:17:00 70 mm[Hg] Sue Niceybo ld - External Heart rate 2022-10-12 21:17:00 92 /min Normse y Seybold - External Body temperature 2022-10-12 21:17:00 36.78 Rosio Sue Niceybold - External Respiratory rate 2022-10-12 21:17:00 14 /min Sue Niceybold - External Body height 2022-10-12 21:17:00 175.3 cm Lisa ey Seybold - External Body weight 2022-10-12 21:17:00 92.987 kg Lisa ey Seybold - External BMI 2022-10-12 21:17:00 30.27 kg/m2 Lisa ey Seybold - External Oxygen saturation in Arterial blood by Pulse oximetry 2022-10-12 21:17:00 98 /min Sue Niceybo ld - External Systolic blood pressure 2022-03-05 17:58:00 137 mm[Hg] [facility] Diastolic blood pressure 2022-03-05 17:58:00 80 mm[Hg] [facility] Heart rate 2022-03-05 17:58:00 105 /min [facility] Body temperature 2022-03-05 17:58:00 37.67 Rosio [facility] Respiratory rate 2022-03-05 17:58:00 18 /min [facility] Body height 2022-03-05 17:58:00 175.3 cm [facility] Body weight 2022-03-05 17:58:00 90.81 kg [facility] BMI 2022-03-05 17:58:00 29.56 kg/m2 [facility] Oxygen saturation in Arterial blood by Pulse oximetry 2022-03-05 17:58:00 98 /min [facility] Procedures Procedure Date / Time Performed Performing Clinicia n Source POCT SARS-COV-2 ANTIGEN (BINAX NOW) 2022-03-05 00:00:00 Madison Borden [facility] Encounters Start Date/Time End Date/Time Encounter Type Admission Type Attending [facility] Care Department Encounter ID Source 2025-05-23 09:45:00 2025-05-23 09:45:00 Outpatient KIM MACK [id number] [facility] 2025-05-23 00:00:00 2025-05-23 00:00:00 Outpatient KIM MACK [id number] [facility] 2025-04-09 00:00:00 2025-04-09 00:00:00 [id number] [facility]25-03-04 08:30:00 2025-03-04 08:30:00 Outpatient KRISTA BOLES [id number] [facility] 2025-02-08 00:00:00 2025-02-08 00:00:00 Outpatient RICCARDO ELLIS [id number] [facility] 2025-01-16 00:00:00 2025-01-16 00:00:00 Outpatient KRISTA BOLES [id number] [facility] 2025-01-13 00:00:00 2025-01-13 00:00:00 Outpatient KRISTA BOLES [id number] Sue Nicehosea 2025-01-11 08:00:00 2025-01-11 08:00:00 Outpatient KRISTA BOLES SUE KATZ [id number] Sue Seybold 2025-01-10 15:45:00 2025-01-10 15:45:00 Outpatient RAMAN MIKE SUE KATZ [id number] Sue Seybold 2025-01-10 15:00:00 2025-01-10 15:00:00 Outpatient SUE KATZ [id number] Sue Seybold 2025-01-10 00:00:00 2025-01-10 00:00:00 Outpatient MD SUE COWART [id number] Sue Seybold 2025-01-10 00:00:00 2025-01-10 00:00:00 Outpatient RAMANA KRISTA SUE KATZ [id number] Sue Seybold 2023-12-28 08:45:00 2023-12-28 08:45:00 Outpatient SANTOS SUAZO [id number] Sue Seybold 2023-11-10 08:00:00 2023-11-10 08:00:00 Outpatient SANTOS SUAZO [id number] Sue Seybold 2023-11-09 15:15:00 2023-11-09 15:15:00 Outpatient TRED47 SUE KATZ [id number] Sue Seybold 2023-11-09 14:00:00 2023-11-09 14:00:00 Outpatient SUE KATZ [id number] Sue Seybold 2023-11-09 09:00:00 2023-11-09 09:00:00 Outpatient SANTOS SUAZO [id number] Sue Seybold 2023-10-18 10:40:00 2023-10-18 10:40:00 Outpatient ANGEL GARCIA [id number] Sue Seybold 2023-09-28 08:00:00 2023-09-28 08:00:00 Outpatient SANTOS SUAZO [id number] Sue Seybold 2023-09-22 00:00:00 2023-09-22 00:00:00 Outpatient HERMINIO BAUER [id number] Sue Seybold 2023-08-16 08:00:00 2023-08-16 08:00:00 Outpatient SANTOS SUAZO SUE KATZ [id number] Sue Nicey[facility]osea 2023-07-20 00:00:00 2023-07-20 00:00:00 Outpatient SUAZOSANTOS DIXON SUE KATZ [id number] Sue [facility] 2023-07-19 11:50:00 2023-07-19 11:50:00 Outpatient FLOOR, MARGAUX SUE KATZ [id number] Sue [facility]ose[facility] 2023-07-19 11:00:00 2023-07-19 11:00:00 Outpatient ANGEL GARCIA [id number] Sue [facility] 2023-07-19 08:30:00 2023-07-19 08:30:00 Outpatient ÁNGELAKAYE DARIAN KATZ [id number] [facility] 2023-07-09 00:00:00 2023-07-09 00:00:00 Outpatient KRISTA BOLES [id number] [facility] 2023-06-28 10:50:00 2023-06-28 10:50:00 Outpatient LAB90 SUE KATZ [id number] [facility] 2023-06-28 08:15:00 2023-06-28 08:15:00 Outpatient SUAZO, SANTOS SUE KATZ [id number] Sue [facility] 2023-06-24 16:00:00 2023-06-24 16:00:00 Outpatient [facility]RISTA BOLES [id number] [facility] 2023-06-23 00:00:00 2023-06-23 00:00:00 Outpatient KRISTA BOLES [id number] [facility] 2023-06-21 00:00:00 2023-06-21 00:00:00 Outpatient KRISTA BOLES [id number] [facility] 2023-06-20 00:00:00 2023-06-20 00:00:00 Outpatient KRISTA BOLES [id number] [facility] 2023-06-17 16:25:2023-06-17 16:25:00 Outpatient LAB90 SUE KATZ [id number] Sue [facility]ose[facility] 2023-06-17 15:30:00 2023-06-17 15:30:00 Outpatient RAMANA, KRISTA KATZ [id number] Sue [facility] 2023-06-17 00:00:00 2023-06-17 00:00:00 Outpatient PREZAMini KIM SUE KATZ [id number] Sue [facility] 2023-06-07 00:00:00 2023-06-07 00:00:00 Outpatient PREZAS KIM KATZ [id number] Sue [facility] 2023-06-02 00:00:00 2023-06-02 00:00:00 Outpatient RAMANA, KRISTA KATZ [id number] [facility] 2023-05-31 15:30:00 2023-05-31 15:30:00 Outpatient MARY LOU MARTÍNEZ [id number] [facility] 2023-05-26 08:00:00 2023-05-26 08:00:00 Outpatient GABRIELESANTOS SUE KATZ [id number] [facility] 2023-04-16 00:00:00 2023-04-16 00:00:00 Outpatient KRISTA BOLES [id number] [facility] 2023-04-06 08:30:00 2023-04-06 08:30:00 Outpatient SASKIA PURCELL [id number] [facility] 2023-03-30 13:00:00 2023-03-30 13:00:00 Outpatient HUNDOmer, KRISTA KATZ [id number] Sue [facility] 2023-03-29 00:00:00 2023-03-29 00:00:00 Outpatient KRISTA BOLES [id number] Sue [facility] 2023-03-25 16:45:00 2023-03-25 16:45:00 Outpatient LAB90 SUE KATZ [id number] Sue [facility] 2023-03-25 16:00:00 2023-03-25 16:00:00 Outpatient HUNDL, KRISTA KATZ [id number] [facility] 2023-03-23 00:00:00 2023-03-23 00:00:00 Outpatient PREZAS, KIM KATZ SUE [id number] [facility] 2022-11-30 00:00:00 2022-11-30 00:00:00 Outpatient PREZAS, KIM KATZ SUE [id number] [facility] 2022-11-09 15:00:00 2022-11-09 15:00:00 Outpatient PREZAS, KIM KATZ SUE [id number] [facility] 2022-11-02 00:00:00 2022-11-02 00:00:00 Outpatient PREZAS, KIM KATZ SUE [id number] [facility] 2022-11-01 00:00:00 2022-11-01 00:00:00 Outpatient PREZAS, KIM SUE KATZ [id number] [facility] 2022-10-23 00:00:00 2022-10-23 00:00:00 Outpatient PREZAS, KIM KATZ SUE [id number] [facility] 2022-10-12 15:15:00 2022-10-12 15:15:00 Outpatient PREZAS, KIM GOLDFADY KATZ [id number] [facility] 2022-03-05 13:00:00 2022-03-05 13:20:00 Urgent Care Yomairapamela [facility] [id number] [facility] 2022-03-05 13:00:00 2022-03-05 13:00:00 Outpatient R ADDIS [facility] [id number] [facility] 2022-03-05 00:00:00 2022-03-05 00:00:00 Letter (Out) Rioayaka [facility] [id number] [facility] Results Test Description Test Time Test Comments Results Result Co mments Source [facility] Notes Date/Time Note Provider Source 2025-03-04 08:25:43 Chief Complaint Patient presents with Follow-up Follow up on anxiety. He states no change since last visit. He hasn't seen psychiatry. Sleep Problem He hasn't been sleeping well in the past month. Erin Broussard MA [facility] 2025-01-11 08:11:11 Chief Complaint Patient presents with Depression His father yesterday and he is having trouble with stress and depression. Erin Broussard MA [facility] 2023-03-25 16:00:52 Formatting of this n ote might be different from the original. Patient is in the office today states he has excessive sweating for the past few years but it is getting worse in the past 3 days. He did see Dermatology for this a while back and was prescribed a roll on he does not know the name of the medication but it did not work. 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 He sat in the office in the air conditioning and rank cool water but when he went back outside he had the same symptoms and was sent home. T Violeta Escalante [facility]
--- NOTE | 2025-05-23 13:14 | RAD REPORT ---
EXAM: CT brain without contrast HISTORY: STROKE ALERT COMPARISON: 12/01/2010 TECHNIQUE: Multiple contiguous axial images were obtained and a CT of the brain without contrast. Sag ittal and coronal reformats were performed. One or more of the following dose reduction techniques were used: Automated exposure control, adjust ment of the mA and/or kV according to patient size, and/or iterative reconstruction. FINDINGS: No evidence of hydrocephalus, intracranial hemorrhage, or extra-axial fluid collection. The brain is normal in morphology. No evidence of midline shift or areas of brain edema. The calvarium is intact. Mild mucosal thickening inferior maxillary antra. IMPRESSION: No evidence of acute intracranial abnormality. The findings were communicated with Lakhwinder Sainz MD at 05/23/2025 1:10 PM by telephone.
[2025-05-23 13:19] LABS: Absolute Lymphocytes (CBC) 1.3 K/uL (0.7-4.9); Hematocrit 38.2 % (39.6-49.0); Hemoglobin 12.9 g/dL (13.6-17.9); MCH 30.2 pg (27.0-35.0); MCHC 33.7 g/dL (32.0-36.0); MCV 89.7 fL (80-100); MPV 7.9 fL (7.6-11.3); Nucleated RBC Absolute Count 0.0 (0-0); Nucleated Red Blood Cells % 0.1 % (0-0); RBC Red Blood Cell Count 4.26 M/uL (4.33-5.43); White Blood Count 5.30 thou/uL (4.3-10.9)
[2025-05-23 13:28] LABS: PT Prothrombin Time 11.9 SECONDS (10-13.0); PTT, Activated Partial Thromb 31.6 SECONDS (27.2-37.4); Protime INR 1.05
[2025-05-23 13:36] LABS: Anion Gap 5.7 mEq/L (5.0-15.0); BUN Blood Urea Nitrogen 19.0 mg/dL (7-18); Glucose Level 108.0 mg/dL (74-106); Potassium 3.7 mEq/L (3.5-5.1); Troponin High Sensitivity 6.4 pg/mL (<58.9)
--- NOTE | 2025-05-23 13:39 | RAD REPORT ---
EXAMINATION: CTA HEAD CLINICAL INDICATION: a STROKE ALER TECHNIQUE: Axial CT images were obtained through the head after intravenous contrast utilizing angiog raphic protocol with 3D post-processing (maximum intensity projection images, volume rendered images and/or shaded surface rendered images). One or more of the following dose reduction technique s were used: Automated exposure control, adjustment of the mA and/or kV according to patient size, and/or iterative reconstruction. Unless otherwise specified, incidental findings do not require dedic ated imaging follow-up. COMPARISON: No prior exam. FINDINGS: ICA: The petrous, cavernous, and supraclinoid segments of the bilateral internal carotid arteries are normal. The ophthalmic artery origins are visualized and normal. The posterior communicating arteries are patent. JOSE LUIS: Anterior cerebral arteries are normal bilaterally. The anterior communicating artery is patent. MCA: Middle cerebral arteries are normal bilaterally. RESEARCH STAFF MEMBER: Posterior cerebral arteries are normal bilaterally. Vertebrobasilar: The vertebral arteries are patent. The basilar artery is normal in appearance. 3D images confirm these findings. IMPRESSION: No significant flow abnormality is identified.
--- NOTE | 2025-05-23 13:42 | RAD REPORT ---
EXAMINATION: CTA NECK CLINICAL INDICATION: code stroke TECHNIQUE: Axial CT images were obtained from the aortic arch to the skull base after intravenous con trast utilizing angiographic protocol with 3D post-processing (maximum intensity projection images, volume rendered images and/or shaded surface rendered images). One or more of the following dose redu ction techniques were used: Automated exposure control, adjustment of the mA and/or kV according to patient size, and/or iterative reconstruction. Unless otherwise specified, incidental findings do not require dedicated imaging follow-up. COMPARISON: No prior exam. FINDINGS: AORTA: The imaged aortic arch is normal. CCA: The common carotid arteries are patent and normal in caliber. ICA/ECA: Bilateral internal and external carotid arteries are patent. There is no significant interna l carotid artery stenosis. VERTEBRAL: The cervical vertebral arteries are patent. The vertebral arteries are codominant. SOFT TISSUE: No significant neck soft tissue abnormalities. The visualized lung apices are clear. 3D images confirm these findings. IMPRESSION: No significant flow abnormality of the neck vessels is identified. NASCET criteria used. Mild 0-49% stenosis Moderate 50-69% stenosis Severe 70-99% stenosis
--- NOTE | 2025-05-23 14:13 | RAD REPORT ---
EXAMINATION: ONE VIEW CHEST XR CLINICAL INDICATION: code stroke TECHNIQUE: Frontal chest projection is submitted. Examination is limited by patient positioning and t echnique. COMPARISON: 02/08/2025 FINDINGS: The lungs are well inflated and clear. The heart is normal in size. No displaced fractures identified . IMPRESSION: No acute intrathoracic abnormalities.
--- NOTE | 2025-05-23 14:50 | ER ---
Nurse's Notes [facility] Name: Ankur Owens Age: 49 yrs Sex: Male : 1975 Arrival Date: 05/23/2025 Time: 12:30 Bed 2 Private MD: Diagnosis: Cerebral infarction, unspecified;Dizziness and giddiness;Slurred speech Presentation: 05/23 12:53 Chief complaint: Patient states: 2 WEEKS WITH LEFT THIGH AND LT LEG NUMBNESS AND dd2 TINGLING. THIS MORNING AT 4 AM, STUMBLING INTO DIAZ, UNSTEADY, COORDINATION OFF AND WAS UNABLE TO USE PHONE OR BUTTON SHIRT. PT ALSO REPORTED BLURRED VISION. PT REPORTS FEELING BETTER BUT STILL FEELS "OFF", SLIGHT BLURRED VISION, AND UNSTEADY. PT REPORTS LAST NORMAL WAS LAST NIGHT. Coronavirus screen: At this time, the client does not indicate any symptoms associated with coronavirus-19. Ebola Screen: No symptoms or risks identified at this time. No acute neurological deficit is noted. Pre-hospital glucose is not applicable to this patient. Risk Assessment: Do you want to hurt yourself or someone else? Patient reports no desire to harm self or others. Onset of symptoms Onset of symptoms was May 22, 2025 at 21:30. 12:53 Method Of Arrival: Ambulatory dd2 12:53 Acuity: MELI 2 dd2 13:28 Initial Sepsis Screen: Does the patient meet any 2 criteria? No. Patient's initial mb9 sepsis screen is negative. Does the patient have a suspected source of infection? No. Patient's initial sepsis screen is negative. Triage Assessment: 12:59 The onset of the patients symptoms was May 22, 2025 at 21:30. General: Appears in dd2 no apparent distress. well groomed, well developed, well nourished, Behavior is calm, cooperative, appropriate for age. Pain: Denies pain. Neuro: Reports blurred vision since 4 AM dizziness, numbness. Stroke Activation: Physician: ED Attending; Name: LAKHWINDER SAINZ; Notified At: 12:49; Arrived At: 12:49 Physician: Mid-Level Provider; Name: ; Notified At: 12:49; Arrived At: Physician: [not used]; Name: ; Notified At: ; Arrived At: Physician: [not used]; Name: ; Notified At: ; Arrived At: Physician: [not used]; Name: ; Notified At: ; Arrived At: Historical: - Allergies: 12:59 No Known Allergies; dd2 - PMHx: 12:59 PRAIRIE BAND; dd2 - PSHx: 12:59 Appendectomy; dd2 - Immunization history:: Adult Immunizations up to date. - Infectious Disease History:: Denies. - Family history:: not pertinent. - Social history:: Smoking status: Patient denies any tobacco usage or history of. - Hospitalizations: : No recent hospitalization is reported. Screenin:32 [facility] ED Fall Risk Assessment (Adult) History of falling in the last 3 months, mb9 including since admission No falls in past 3 months (0 pts) Confusion or Disorientation No (0 pts) Intoxicated or Sedated No (0 pts) Impaired Gait No (0 pts) Mobility Assist Device Used No (0 pt) Altered Elimination No (0 pt) Score/Fall Risk Level 0 - 2 = Low Risk Oriented to surroundings, Maintained a safe environment, Educated pt \\T\\ family on fall prevention, incl call for assistance when getting out of bed. Abuse screen: Denies threats or abuse. Nutritional screening: No deficits noted. Tuberculosis screening: No symptoms or risk factors identified. Assessment: 13:15 VAN Scoring: Arm Drift: Patients demonstrates NO arm weakness. Patient is VAN Negative. mb9 [place] Swallow Protocol Brief Cognitive Screen What is your name? Normal, Where are you right now? Normal, What year is it? Normal. Oral Mechanism Examination Facial Symmetry: Normal, Motion: Normal, Lip Closure: Normal, Oral Mechanism Result: Normal. 3 oz Water Swallow Challenge: Pt able to drink all water without stopping, coughing, choking or throat clearing: Yes Result: PASS Notified: Lakhwinder Sainz MD. TNKase (Tenecteplase) Screening: Not Applicable. 13:15 [place] Swallow Protocol Exclusion Criteria:. mb9 13:15 Reassessment: Assumed care of pt at this time. Pt placed on environmental monitoring specialist, BP, SPO2. mb9 Pt speech is slightly slurred and pt has numbness to left lower extremity that started 1 week ago. Pt stated he started having blurred vision this morning and coordination was off. Pt airway intact, respirations even and unlabored. Pt denies SOB/CP/headache. 13:30 Reassessment: See stroke packet for further information. mb9 13:31 General: Appears in no apparent distress. Behavior is calm, cooperative. Pain: Denies mb9 pain. Neuro: Arceo Agitation-Sedation Scale (RASS): 0 - Alert and Calm Level of Consciousness is awake, alert, obeys commands, Oriented to person, place, time, situation, Appropriate for age Replenisher are equal bilaterally Moves all extremities. Gait is unsteady, Speech is slurred, Facial symmetry appears normal, Pupils are PERRLA, paresthesias in left leg. 13:32 Cardiovascular: Patient's skin is warm and dry. Respiratory: Airway is patent mb9 Respiratory effort is even, unlabored, Respiratory pattern is regular, symmetrical. GI: No signs and/or symptoms were reported involving the gastrointestinal system. : No signs and/or symptoms were reported regarding the genitourinary system. Derm: Skin is pink, warm \\T\\ dry. Musculoskeletal: Range of motion: intact in all extremities. 14:45 Reassessment: No changes from previously documented assessment. Patient and/or family mb9 updated on plan of care and expected duration. Pain level reassessed. Patient is alert, oriented x 3, equal unlabored respirations, skin warm/dry/pink. 16:15 Reassessment: No changes from previously documented assessment. Patient and/or family mb9 updated on plan of care and expected duration. Pain level reassessed. Patient is alert, oriented x 3, equal unlabored respirations, skin warm/dry/pink. 16:32 Reassessment: Report faced to 411. No answer when calling x 2 times. mb9 Vital Signs: 13:15 BP 125 / 85; Pulse 89; Resp 18; Temp 97.6; Pulse Ox 96% ; Weight 115.21 kg; Height 5 mb9 ft. 9 in. ; Pain 0/10; 13:45 BP 122 / 82; Pulse 86; Resp 18; Pulse Ox 100% ; mb9 14:15 BP 129 / 75; Pulse 79; Resp 18; Pulse Ox 100% ; mb9 13:15 Body Mass Index 37.51 (115.21 kg, 175.26 cm) mb9 13:15 Pain Scale: Adult mb9 NIH Stroke Scale Scores: 13:15 NIHSS Score: 2 mb9 13:15 NIHSS Score: 2 mb9 ED Course: 12:37 Patient arrived in ED. al6 12:46 Lakhwinder Sainz MD is Attending Physician. rn 12:57 Heaven Stinson, RN is Primary Nurse. mb9 12:58 Triage completed. dd2 12:59 Arm band placed on right wrist. dd2 13:02 Heaven Stinson, RN is Primary Nurse. mb9 13:08 Initial lab(s) drawn, by me, sent to lab. ty 13:08 Inserted saline lock: 20 gauge in right antecubital area, using aseptic technique. ty Blood collected. Flushed with 10 mL NS. 13:10 CT Stroke Brain w/o Contrast In Process Unspecified. EDMS 13:12 Radiology exam delayed due to PT IN CT, THEN WORKING ON EKG. md2 13:15 CT Head Angio In Process Unspecified. EDMS 13:15 CT Neck Angio In Process Unspecified. EDMS 13:15 EKG done, by ED staff, reviewed by Lakhwinder Sainz MD. ty 13:31 No provider procedures requiring assistance completed. mb9 13:33 Placed in gown. Bed in low position. Call light in reach. Side rails up X 1. Provided mb9 Education on: press call light if needing anything. Client placed on continuous cardiac and pulse oximetry monitoring. NIBP monitoring applied. desk monitor on. 14:03 Stroke CXR 1 View In Process Unspecified. EDMS 14:49 Papito Olvera is Hospitalizing Provider. rn 16:38 Patient admitted, IV remains in place. mb9 Administered Medications: No medications were administered Medication: 13:33 VIS not applicable for this client. mb9 Point of Care Testing: Blood Glucose: 13:19 Blood Glucose: 105 mg/dL; mb9 Ranges: Outcome: 14:49 Decision to Hospitalize by Provider. rn 16:38 Admitted to Tele accompanied by tech, room 411, mb9 16:38 Condition: stable 16:38 Instructed on the need for admit, 17:20 Patient left the ED. mb9 NIH Stroke Scale - NIH Stroke Score Date: 05/23/2025 Time: 13:15 Total Score = 2 10. Dysarthria (speech clarity - read or repeat words) - 1(Mild to Moderate) 11. Extinction and Inattention (visual/tactile/auditory/spatial/personal) - 0(No abnormality) 1a. Level of Consciousness (LOC) - 0(Alert) 1b. Level of Consciousness (LOC) (Month \\T\\ Age) - 0(Both) 1c. LOC Commands (Open \\T\\ Closes Eyes/Furnace Reliner) - 0(Both) 2. Best Gaze (Lateral Gaze Paresis) - 0(Normal) 3. Visual Field Loss - 0(No visual loss) 4. Facial Palsy - 0(Normal) 5a. Left Arm: Motor (10-second hold) - 0(No drift) 5b. Right Arm: Motor (10-second hold) - 0(No drift) 6a. Left Leg: Motor (5-second hold - always test supine) - 0(No drift) 6b. Right Leg: Motor (5-second hold - always test supine) - 0(No drift) 7. Limb Ataxia (finger/nose \\T\\ heel/doan - test with eyes open) - 0(Absent) 8. Sensory Loss (pinprick arms/legs/face) - 1(Mild to moderate loss) 9. Best Language: Aphasia (description/naming/reading) - 0(No aphasia) Initials: mb9 NIH Stroke Scale - NIH Stroke Score Date: 05/23/2025 Time: 13:15 Total Score = 2 10. Dysarthria (speech clarity - read or repeat words) - 1(Mild to Moderate) 11. Extinction and Inattention (visual/tactile/auditory/spatial/personal) - 0(No abnormality) 1a. Level of Consciousness (LOC) - 0(Alert) 1b. Level of Consciousness (LOC) (Month \\T\\ Age) - 0(Both) 1c. LOC Commands (Open \\T\\ Closes Eyes/Furnace Reliner) - 0(Both) 2. Best Gaze (Lateral Gaze Paresis) - 0(Normal) 3. Visual Field Loss - 0(No visual loss) 4. Facial Palsy - 0(Normal) 5a. Left Arm: Motor (10-second hold) - 0(No drift) 5b. Right Arm: Motor (10-second hold) - 0(No drift) 6a. Left Leg: Motor (5-second hold - always test supine) - 0(No drift) 6b. Right Leg: Motor (5-second hold - always test supine) - 0(No drift) 7. Limb Ataxia (finger/nose \\T\\ heel/doan - test with eyes open) - 0(Absent) 8. Sensory Loss (pinprick arms/legs/face) - 1(Mild to moderate loss) 9. Best Language: Aphasia (description/naming/reading) - 0(No aphasia) Initials: mb9 Signatures: Dispatcher [employer] Lakhwinder Sim MD MD rn Rubens, Evon [email or web address] Heaven Stinson, RN RN mb9 [employer] DIANA, RN RN [email or web address] Justine [email or web address] Corrections: (The following items were deleted from the chart) 12:59 12:53 Onset of symptoms dd2 dd2 13:24 13:24 Inserted saline lock: 20 gauge in right antecubital area, using aseptic 9 technique. Blood collected. Flushed with 10 mL NS 9 13:24 13:24 Initial lab(s) drawn, by me, sent to lab. [email or web address] 13:32 13:31 General: Appears in no apparent distress. Behavior is calm, cooperative, [email or web address] 14:17 13:29 BP 125 / 85; Pulse 89bpm; Resp 18bpm; Pulse Ox 96%; Temp 97.6F; 115.21 mb9 kg; Height 5 ft. 9 in.; BMI: 37.5; Pain 0/10, Adult; ty
--- NOTE | 2025-05-23 14:50 | EDPHYS ---
Physician Documentation [facility] Name: Ankur Owens Age: 49 yrs Sex: Male : 1975 Arrival Date: 05/23/2025 Time: 12:30 Bed 2 Private MD: ED Physician Lakhwinder Sainz HPI: 05/23 12:56 This 49 yrs old Male presents to ER via Unassigned with complaints of Weakness, rn Dizziness, Blurred Vision, Slurred Speech. 12:56 Last known normal was when going to bed last night, woke up this morning at 4 AM rn already dizzy, blurred vision, slurred speech with difficulty walking and coordination problems. Symptoms improving and currently only has mildly slurred speech and dizziness. Historical: - Allergies: 12:59 No Known Allergies; dd2 - PMHx: 12:59 CABAZON; dd2 - PSHx: 12:59 Appendectomy; dd2 - Immunization history:: Adult Immunizations up to date. - Infectious Disease History:: Denies. - Family history:: not pertinent. - Social history:: Smoking status: Patient denies any tobacco usage or history of. - Hospitalizations: : No recent hospitalization is reported. ROS: 14:45 Constitutional: Negative for fever, chills, and weight loss, Cardiovascular: Negative rn for chest pain, palpitations, and edema, Respiratory: Negative for shortness of breath, cough, wheezing, and pleuritic chest pain, Abdomen/GI: Negative for abdominal pain, nausea, vomiting, diarrhea, and constipation, MS/Extremity: Negative for injury and deformity, Skin: Negative for injury, rash, and discoloration, Neuro: Positive for dizziness currently, slurred speech and blurred vision have resolved Exam: 14:45 Constitutional: This is a well developed, well nourished patient who is awake, alert, rn and in no acute distress. Ambulatory to triage without assistance or difficulty Head/Face: Normocephalic, atraumatic. Eyes: Pupils equal round and reactive to light, extra-ocular motions intact. Cardiovascular: Regular rate and rhythm. No pulse deficits. Respiratory: Speaking full sentences, unlabored, no increased work of breathing, no retractions or nasal flaring. MS/ Extremity: Pulses equal, no cyanosis. Neurovascular intact. Full, normal range of motion. Equal circumference. Neuro: Awake and alert, GCS 15, oriented to person, place, time, and situation. Cranial nerves II-XII grossly intact. Motor strength 5/5 in all extremities. Sensory grossly intact. Cerebellar exam normal. Normal gait. Mild slurred speech Vital Signs: 13:15 BP 125 / 85; Pulse 89; Resp 18; Temp 97.6; Pulse Ox 96% ; Weight 115.21 kg; Height 5 mb9 ft. 9 in. ; Pain 0/10; 13:45 BP 122 / 82; Pulse 86; Resp 18; Pulse Ox 100% ; mb9 14:15 BP 129 / 75; Pulse 79; Resp 18; Pulse Ox 100% ; mb9 13:15 Body Mass Index 37.51 (115.21 kg, 175.26 cm) mb9 13:15 Pain Scale: Adult mb9 NIH Stroke Scale Scores: 13:15 NIHSS Score: 2 mb9 13:15 NIHSS Score: 2 mb9 MDM: 12:55 Medical Screening Exam initiated rn 13:08 Discussion of test interpretation with radiology: I had a discussion with journeyman apprentice electricians regarding a test interpretation. Discussed CT head findings with radiologist, CT head images negative for acute hemorrhage.. 14:47 Data reviewed: vital signs, nurses notes, lab test result(s), EKG, radiologic studies, rn CT scan, and as a result, I will discharge patient. Consideration of Admission/Observation Patient was admitted/placed on observation. Escalation of care including admission/observation considered. Independent interpretation of the following test(s) in the Emergency Department X-Ray: My interpretation is Chest x-ray images negative for pneumothorax per my interpretation. CT Scan: My interpretation is CT head images negative for acute hemorrhage per my interpretation. burnt lime drawer: rate is 79 beats/min, Rhythm is normal sinus rhythm, regular, with no ectopy, Interpretation: normal rate, normal rhythm. Counseling: I had a detailed discussion with the patient and/or guardian regarding the historical points, exam findings, and any diagnostic results supporting the discharge/admit diagnosis, lab results, radiology results, the need for further work-up and treatment in the hospital. Response to treatment: the patient's symptoms have markedly improved after treatment, and as a result, I will admit patient. 05/23 12:56 Order name: Basic Metabolic Panel; Complete Time: 13:51 rn 05/23 12:56 Order name: CBC with Diff; Complete Time: 13:51 rn 10/02 12:56 Order name: High Sensitivity Troponin; Complete Time: 13:51 rn 05/23 12:56 Order name: Protime (+inr); Complete Time: 13:51 rn 05/23 12:56 Order name: Ptt, Activated; Complete Time: 13:51 rn 05/23 13:21 Order name: Glucose, Ancillary Testing; Complete Time: 13:51 EDMS 05/23 13:56 Order name: CREATININE WHOLE BLOOD; Complete Time: 14:04 EDMS 05/23 15:52 Order name: Basic Metabolic Panel EDMS 05/23 15:52 Order name: Basic Metabolic Panel EDMS 05/23 15:52 Order name: Basic Metabolic Panel EDMS 05/23 15:52 Order name: Basic Metabolic Panel EDMS 05/23 15:52 Order name: Basic Metabolic Panel EDMS 05/23 15:53 Order name: CBC with Automated Diff EDMS 05/23 15:53 Order name: CBC with Automated Diff EDMS 05/23 15:53 Order name: CBC with Automated Diff EDMS 05/23 15:53 Order name: CBC with Automated Diff EDMS 05/23 15:53 Order name: CBC with Automated Diff EDMS 05/23 15:53 Order name: Lipid Profile EDMS 05/23 15:53 Order name: Lipid Profile EDMS 05/23 12:56 Order name: CT Head Angio; Complete Time: 13:51 rn 05/23 12:56 Order name: CT Neck Angio; Complete Time: 13:51 rn 05/23 12:56 Order name: CT Stroke Brain w/o Contrast; Complete Time: 13:51 rn 05/23 12:56 Order name: Stroke CXR 1 View; Complete Time: 14:15 rn 05/23 17:19 Order name: MRI EDRI 05/23 12:56 Order name: EKG; Complete Time: 12:57 rn 05/23 15:52 Order name: Physical Therapy Consult EDRI 05/23 15:52 Order name: Speech Therapy Consult EDRI 05/23 12:56 Order name: Accucheck; Complete Time: 13:17 rn 05/23 12:56 Order name: Cardiac monitoring; Complete Time: 13:23 rn 05/23 12:56 Order name: EKG - Nurse/Tech; Complete Time: 13:17 rn 05/23 12:56 Order name: IV Saline Lock; Complete Time: 13:23 rn 05/23 12:56 Order name: Labs collected and sent; Complete Time: 13:23 rn 05/23 12:56 Order name: NPO; Complete Time: 13:23 rn 05/23 12:56 Order name: O2 Per Protocol; Complete Time: 13:23 rn 05/23 12:56 Order name: O2 Sat Monitoring; Complete Time: 13:23 rn 05/23 12:56 Order name: Stroke Swallow Screen; Complete Time: 13:23 rn Administered Medications: No medications were administered Point of Care Testing: Blood Glucose: 13:19 Blood Glucose: 105 mg/dL; mb9 Ranges: Critical Glucose Levels:Adult <50 mg/dl or >400 mg/dl <40 mg/dl or >180 mg/dl Disposition Summary: 05/23/25 14:49 Hospitalization Ordered Notes: Hospitalization Status: Inpatient Admission rn Provider: Papito Olvera rn Location: Telemetry/MedSurg (observation) rn Condition: Stable rn Problem: new rn Symptoms: have improved rn Bed/Room Type: Standard rn Room Assignment: 411(05/23/25 16:20) bc6 Diagnosis - Cerebral infarction, unspecified rn - Dizziness and giddiness rn - Slurred speech rn Forms: - Medication Reconciliation Form rn - SBAR form rn - Leadership Thank You Letter rn NIH Stroke Scale - NIH Stroke Score Date: 05/23/2025 Time: 13:15 Total Score = 2 10. Dysarthria (speech clarity - read or repeat words) - 1(Mild to Moderate) 11. Extinction and Inattention (visual/tactile/auditory/spatial/personal) - 0(No abnormality) 1a. Level of Consciousness (LOC) - 0(Alert) 1b. Level of Consciousness (LOC) (Month \T\ Age) - 0(Both) 1c. LOC Commands (Open \T\ Closes Eyes/Traffic Signal Repairer) - 0(Both) 2. Best Gaze (Lateral Gaze Paresis) - 0(Normal) 3. Visual Field Loss - 0(No visual loss) 4. Facial Palsy - 0(Normal) 5a. Left Arm: Motor (10-second hold) - 0(No drift) 5b. Right Arm: Motor (10-second hold) - 0(No drift) 6a. Left Leg: Motor (5-second hold - always test supine) - 0(No drift) 6b. Right Leg: Motor (5-second hold - always test supine) - 0(No drift) 7. Limb Ataxia (finger/nose \T\ heel/doan - test with eyes open) - 0(Absent) 8. Sensory Loss (pinprick arms/legs/face) - 1(Mild to moderate loss) 9. Best Language: Aphasia (description/naming/reading) - 0(No aphasia) Initials: nhi NIH Stroke Scale - NIH Stroke Score Date: 05/23/2025 Time: 13:15 Total Score = 2 10. Dysarthria (speech clarity - read or repeat words) - 1(Mild to Moderate) 11. Extinction and Inattention (visual/tactile/auditory/spatial/personal) - 0(No abnormality) 1a. Level of Consciousness (LOC) - 0(Alert) 1b. Level of Consciousness (LOC) (Month \T\ Age) - 0(Both) 1c. LOC Commands (Open \T\ Closes Eyes/Traffic Signal Repairer) - 0(Both) 2. Best Gaze (Lateral Gaze Paresis) - 0(Normal) 3. Visual Field Loss - 0(No visual loss) 4. Facial Palsy - 0(Normal) 5a. Left Arm: Motor (10-second hold) - 0(No drift) 5b. Right Arm: Motor (10-second hold) - 0(No drift) 6a. Left Leg: Motor (5-second hold - always test supine) - 0(No drift) 6b. Right Leg: Motor (5-second hold - always test supine) - 0(No drift) 7. Limb Ataxia (finger/nose \T\ heel/doan - test with eyes open) - 0(Absent) 8. Sensory Loss (pinprick arms/legs/face) - 1(Mild to moderate loss) 9. Best Language: Aphasia (description/naming/reading) - 0(No aphasia) Initials: mb9 Signatures: Dispatcher [employer] Lakhwinder Sim MD MD rn Wilkerson, MAHESH Parks RN9 Willa Rawls DIANA, RN RN dd2 Corrections: (The following items were deleted from the chart) 15:01 15:01 Brain Wo Cont+MRI.RAD.BRZ ordered. EDMS EDMS 16:20 14:49 mahesh [email or web address]
[2025-05-23] MEDS ORDERED: ONDANSETRON 4 MG/2 ML VIAL IV PRN (15:48)
--- NOTE | 2025-05-23 16:04 | P.HP ---
Certification for Inpatient Patient admitted to: Observation With expected LOS: <2 Midnights Patient will require the following post-hospital care: None Practitioner: I am a practitioner with admitting privileges, knowledge of patient current condition, hospital course, and medical plan of care. Services: Services provided to patient in accordance with Admission requirements found in Title 42 Section 412.3 of the Code of Federal Regulations Patient History Date of Service: 05/23/25 Reason for admission: CVA History of Present Illness: 49-year-old male who is otherwise healthy presents to the emergency department chief complaint of dizziness, left lower extremity paresthesias, blurry vision, unsteady gait. He noticed paresthesias to his left lateral thigh area about a week ago as well as some changes in his vision. This morning he noticed some dizziness and unsteady gait as well as ataxia. He states that his symptoms were worse when he woke up, last known normal was when he went to bed last night. Symptoms are rapidly improving at this time, his NIH score is a 1 currently. Patient was evaluated in the emergency department CT head without contrast was negative for acute findings, CTA of the head and neck were both negative for any LVO or significant stenosis. Patient still with some dizziness and paresthesias of the left lower extremity will be admitted under observation for CVA rule out. MRI ordered and pending. Labs were unremarkable. Allergies No Known Allergies Allergy (Unverified 07/08/17 20:04) Home Medications: Buprenorphine HCl/Naloxone HCl [Buprenorphine-Nalox 8-2Mg Film] 1 each SL BID 02/09/25 Albuterol Inhaler [Ventolin Inhaler*] 2 puff IH Q6H PRN #1 inh 02/11/25 Amox/Clavulanate [Augmentin 875-125 Tab] 875 mg PO BID 4 Days #8 tab 02/11/25 Azithromycin Tab [Zithromax*] 250 mg PO DAILY #4 tab 02/11/25 Benzonatate [Tessalon Perle] 100 mg PO TID PRN #25 cap 02/11/25 predniSONE [Prednisone] 20 mg PO DAILY #4 tab 02/11/25 - Past Medical/Surgical History Diabetic: No -: Pneumonia -: Appendectomy -: Colon resection Psychosocial/ Personal History: Lives at home with family - Family History Father -: Heart disease Mother -: Heart disease Brother -: Heart disease - Social History Alcohol use: No CD- Drugs: No Caffeine use: Yes Place of Residence: Home Review of Systems 10-point ROS is otherwise unremarkable Neurological: Other (Dizziness/lightheadedness, left lower extremity paresthesias) Physical Examination - Physical Exam General: Alert, In no apparent distress, Oriented x3 HEENT: Atraumatic, PERRLA, EOMI Neck: Supple, 2+ carotid pulse no bruit, No LAD Respiratory: Clear to auscultation bilaterally, Normal air movement Cardiovascular: Regular rate/rhythm, Normal S1 S2 Gastrointestinal: Normal bowel sounds, No tenderness Musculoskeletal: No tenderness Integumentary: No rashes Neurological: Normal gait, Normal speech, Normal strength at 5/5 x4 extr, Normal tone, Normal affect, Other (NIH score 1, decreased sensation left lateral thigh area) - Studies Laboratory Data (last 24 hrs) 05/23/25 05/23/25 05/23/25 13:08 13:08 13:08 WBC 5.30 Hgb 12.9 L Hct 38.2 L Plt Count 224 PT 11.9 INR 1.05 APTT 31.6 Sodium 139 Potassium 3.7 BUN 19 H Creatinine 0.73 Glucose 108 H Assessment and Plan - Plan Assessment: Dizziness/ataxia Left lower extremity paresthesia Blurry vision/diplopia-resolved Rule out CVA Plan: Dizziness/ataxia Left lower extremity paresthesia Blurry vision/diplopia-resolved Rule out CVA CT head without contrast negative for acute findings CTA head and neck negative for LVO Symptoms rapidly/significantly improved Continue aspirin, statin MRI ordered and pending Neurology consultation, serial neurochecks DVT PPX: Lovenox Code status: Full code Discharge Plan: Home Plan to discharge in: 24 Hours - Advance Directives Does patient have a Living Will: No Does patient have a Durable POA for Healthcare: No - Code Status/Comfort Care Code Status Assessed: Yes (Full code) Critical Care: No Time Spent Managing Pts Care (In Minutes): 65
--- NOTE | 2025-05-23 17:19 | RAD REPORT ---
EXAMINATION: MRI BRAIN WITHOUT CONTRAST CLINICAL INDICATION: dizziness, LLE paresthesias TECHNIQUE: Multiplanar multisequence MR images of the brain were obtained without intravenous contras t. Unless otherwise specified, incidental findings do not require dedicated imaging follow-up. COMPARISON: Recent [facility] imaging reviewed. FINDINGS: INTRACRANIAL: Diffusion-weighted images show no acute or early subacute infarction. There is mild bra in atrophy with mild T2/FLAIR hyperintensities in the periventricular and deep white matter regions, likely representing chronic microvascular ischemic changes. There is no mass effect or midli ne shift. No abnormal extraaxial fluid collection. VASCULATURE: Normal signal voids in the larger intracranial arteries and dural venous sinuses. SINUSES: Mild mucosal thickening of the maxillary antra. BONE: The marrow signal pattern is within normal limits. IMPRESSION: Negative for acute CVA or other acute intracranial finding.
[2025-05-23 17:31] VITALS: O2SAT 100
[2025-05-23 17:52] VITALS: BMI 37.5
[2025-05-23] MEDS: ALPRAZOLAM 0.5 MG TABLET PO ONE (20:49)
[2025-05-23] MEDS: ATORVASTATIN 40 MG TAB PO SCH (20:49)
[2025-05-24 08:48] LABS: Absolute Lymphocytes (CBC) 1.1 K/uL (0.7-4.9); Hematocrit 39.5 % (39.6-49.0); Hemoglobin 13.4 g/dL (13.6-17.9); MCH 30.8 pg (27.0-35.0); MCHC 33.8 g/dL (32.0-36.0); MCV 90.9 fL (80-100); MPV 8.3 fL (7.6-11.3); Nucleated RBC Absolute Count 0.0 (0-0); Nucleated Red Blood Cells % 0.1 % (0-0); RBC Red Blood Cell Count 4.34 M/uL (4.33-5.43); White Blood Count 4.70 thou/uL (4.3-10.9)
[2025-05-24] MEDS: ASPIRIN EC 81 MG TAB PO SCH (08:55)
[2025-05-24] MEDS: ENOXAPARIN 40 MG/0.4 ML SQ SCH (08:55)
[2025-05-24 09:06] LABS: Anion Gap 10.0 mEq/L (5.0-15.0); BUN Blood Urea Nitrogen 17.0 mg/dL (7-18); Glucose Level 85.0 mg/dL (74-106); HDL Cholesterol 44.0 mg/dL (40-60); LDL Cholesterol, Calculated 125.0 mg/dL (<130); LDL Cholesterol,Calc NonReport 125.0
[2025-05-24 09:07] LABS: Potassium 5.0 mEq/L (3.5-5.1)
[2025-05-24 12:08] VITALS: BP 132/81; TEMP 97.5
--- NOTE | 2025-05-24 12:56 | RAD REPORT ---
EXAMINATION: CT LUMBAR SPINE WITHOUT CONTRAST CLINICAL INDICATION: Male, 49 years old. left lateral leg paresthesias TECHNIQUE: Axial CT images were obtained through the lumbar spine in soft tissue and bone windows wit hout intravenous contrast. Coronal and Sagittal reformatted images were created from the data set. One or more of the following dose reduction techniques were used: Automated exposure control, adjustm ent of the mA and/ or kV according to patient size, and/or iterative reconstruction. Unless otherwise specified, incidental findings do not require dedicated imaging follow-up. COMPARISON: No prior exam. FINDINGS: For purposes of this dictation, it is assumed that there are 5 non rib-bearing lumbar type vertebrae, and the most caudal fully segmented lumbar vertebra is labeled L5. ALIGNMENT: The lumbar spine demonstrates normal alignment without scoliosis or spondylolisthesis. BONES: Vertebral body heights are preserved. No aggressive osseous lesions. Fqgi-[id number]-[id number] multilev el endplate remodeling facet arthropathy, with the latter changes most notably at L4-5 more so on the left, and L5-S1 bilaterally. DISCS: Disc height loss most notably at L1-2 and L2-3 with disc vacuum phenomena. LEVELS: No significant spinal canal stenosis. Disc bulges and endplate osteophytes contribute to mode rate bilateral neural foraminal narrowing at L4-5 and mild bilateral neural foraminal narrowing at all other lumbar levels. No visualized abnormality within the spinal canal. SOFT TISSUE: No soft tissue abnormalities. IMPRESSION: No acute lumbar spine abnormalities. Up to moderate degenerative changes as above, contributing to va riable degrees of neural foraminal narrowing. If there is concern for radiculopathy, additional evaluation by lumbar spine MRI can provide improved assessment.
--- NOTE | 2025-05-24 16:39 | P.DS ---
Admission Date: 05/23/25 Discharge Date: 05/24/25 Disposition: ROUTINE DISCHARGE Discharge Condition: GOOD Reason for Admission: CVA Brief History of Present Illness: 49-year-old male who is otherwise healthy presents to the emergency department chief complaint of dizziness, left lower extremity paresthesias, blurry vision, unsteady gait. He noticed paresthesias to his left lateral thigh area about a week ago as well as some changes in his vision. This morning he noticed some dizziness and unsteady gait as well as ataxia. He states that his symptoms were worse he could not get up when he woke up in the morning. Normal last normal when he got to bed the night before. Symptoms are rapidly improved his NIH score was 1 in the ER when seen for evaluation. CT head without contrast was negative for acute findings, CTA of the head and neck were both negative for any LVO or significant stenosis. MRI of the brain was contacted and patient hospitalized for further evaluation. Hospital Course: Diagnosis Dizziness/ataxia Left lower extremity paresthesia/peripheral neuropathy Blurry vision/diplopia-resolved TIA Patient placed on observation on the medical floor. Patient neurologic symptoms resolved except numbness in the left posterior thigh which has been present for about 1 week. MRI of the brain did not show any acute stroke or bleed. CT lumbar spine showed moderate degenerative changes as above, contributing to variable degrees of neural foraminal narrowing. Patient with left posterior thigh numbness likely related to peripheral neuropathy/sciatica. Patient is ambulatory with assistance, no problem with speech or swallowing and has no therapy needs. 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 Acute CVA ruled, TIA is possible. Patient is discharged with aspirin and Plavix and Lipitor. He will take aspirin and Plavix for 1 month and continue with aspirin. Patient made aware risk of full-blown CVA increases with history of TIA and emphasized compliance treatment. Vital Signs/Physical Exam: Temp Pulse Resp BP Pulse Ox 97.5 F 89 16 132/81 100 05/24/25 12:00 05/24/25 12:00 05/24/25 12:00 05/24/25 12:00 05/24/25 12:00 General: Alert, In no apparent distress, Oriented x3 HEENT: Mucous membr. moist/pink, Sclerae nonicteric Neck: Supple, JVD not distended Respiratory: Clear to auscultation bilaterally, Normal air movement Cardiovascular: No edema, Regular rate/rhythm, Normal S1 S2 Gastrointestinal: Soft and benign, Non-distended Musculoskeletal: No swelling Integumentary: No rashes, No cyanosis Neurological: Normal gait, Normal speech, Normal strength at 5/5 x4 extr, Cranial nerves 3-12 intact Laboratory Data at Discharge: WBC 4.70 thou/uL (4.3-10.9) 05/24/25 08:38 Hgb 13.4 g/dL (13.6-17.9) L 05/24/25 08:38 Hct 39.5 % (39.6-49.0) L 05/24/25 08:38 Plt Count 194 thou/uL (152-406) 05/24/25 08:38 PT 11.9 SECONDS (10-13.0) 05/23/25 13:08 INR 1.05 05/23/25 13:08 APTT 31.6 SECONDS (27.2-37.4) 05/23/25 13:08 Sodium 141 mEq/L (136-145) 05/24/25 08:38 Potassium 5.0 mEq/L (3.5-5.1) D 05/24/25 08:38 BUN 17 mg/dL (7-18) 05/24/25 08:38 Creatinine 0.94 mg/dL (0.70-1.30) 05/24/25 08:38 Glucose 85 mg/dL (74-106) 05/24/25 08:38 Triglycerides 109 mg/dL (<150) 05/24/25 08:38 Cholesterol 191 mg/dL (<200) 05/24/25 08:38 HDL Cholesterol 44 mg/dL (40-60) 05/24/25 08:38 Cholesterol/HDL Ratio 4.34 05/24/25 08:38 Home Medications: Buprenorphine HCl/Naloxone HCl [Buprenorphine-Nalox 8-2Mg Film] 1 each SL BID 02/09/25 Aspirin [Aspirin EC 81 MG] 81 mg PO DAILY #30 tab 05/24/25 Atorvastatin Calcium [Lipitor] 40 mg PO BEDTIME #30 tab 05/24/25 Brexpiprazole [Rexulti] 1 mg PO DAILY 05/24/25 Clopidogrel Bisulfate [Plavix] 75 mg PO DAILY #30 tab 05/24/25 Sertraline HCl [Zoloft] 100 mg PO DAILY 05/24/25 New Medications: Aspirin [Aspirin EC 81 MG] 81 mg PO DAILY #30 tab Atorvastatin Calcium [Lipitor] 40 mg PO BEDTIME #30 tab Clopidogrel Bisulfate [Plavix] 75 mg PO DAILY #30 tab Physician Discharge Instructions: Patient was admitted to hospital for dizziness, troubles with his speech and coordination which resolved prior to arrival to hospital. CT head was negative for acute findings, CTA of the head and neck were negative for large vessel occlusions or significant stenosis. Subsequent MRI was also negative. It is suspected that patient suffered from a TIA or transient ischemic attack. Recommend taking aspirin, Plavix daily for 1 month followed by just aspirin after that in addition to atorvastatin at bedtime. Recommend close follow-up with neurologyDr. Angela Please also follow-up with your primary care doctor [address] lumbar spine was performed as patient was having some paresthesias of the left lateral thigh area, he does have some moderate degenerative changes but no areas of severe stenosis or other significant findings. Diet: AHA Activity: Ad cindy Followup: José Miguel Miller MD [ASSOCIATE-ACTIVE - CAN ADMIT] - 1 Week Dani Valera DO [Primary Care Provider] - 1 Week Time spent managing pt's care (in minutes): 33
== END 2025-05-24 14:50 | disposition home or self-care (01) ==
LOC: ER 12:30 → ERHOLD 15:48 → 4TH 17:21
PROVIDERS: ADMIT Internal Medicine; ATTEND Internal Medicine
DX: R20.2 Paresthesia of skin (principal); H53.8 Other visual disturbances; R27.0 Ataxia, unspecified; R47.81 Slurred speech
CPT/HCPCS: 93005; 85025 ×2; 80048 ×2; 36415; 85610; 80061; 82565; 82947 ×2; 85730; 84484; 72131; 70496; 70498; 70450; 71045; 70551; 97112; 97116; 97161; 99285; Q9967; J1650; G0378 ×3

== ENCOUNTER 2025-06-05 18:20 | Emergency (ER) | payer OTHER ==
--- OUTSIDE RECORDS SUMMARY | 2025-06-05 18:25 | XMS REPORT | Continuity of Care Document ---
Author Name Unknown Address [address] [place] [address] [facility] Address [address] [place] [address] Care Team Providers Care Business Employment Specialist Name Role Phone PCP, PATIENT DOES NOT [...] LAB HEM-ONC 2ND Attending Clinician Unava ilable ADRIAN LEWIS Attending Clinician Unavailable LAB90 Attending Clinician Unavailable MARY LOU MARTÍNEZ Attending Clinician Unavailable SASKIA PURCELL Attending Clinician Unava ilable Madison Parekh Attending Clinician MADISON BORDEN Attending Clinician Unavailable Payers Payer Name Policy Type Policy Number Effective Date Expirati on Date Source GREGORIO 2 [id number] 2022 00:00:00 Problems Condition Name Condition Details [...] problems No known active problems Disease [facility] Allergies, Adverse Reactions, Alerts Allergy Name Allergy Type Status Severity Reaction(s) Onset Date Inactive Date Treating Clinician Comments Source NO KNOWN ALLERGIE S Drug Class [facility] Social History Social Habit Start Date Stop [...] SARS-CoV-2 (event) 2022-02-23 00:00:00 2022-03-05 12:42:00 Yes [facility] Sex assigned at 1975 00:00:00 1975 00:00:00 Sue Costa - External Smoking Status Start Date Stop Date Source Tobacco smoking consumption unknown [facility] Ex-smoker 2023-03-30 00:00:00 2023-03-30 00:00:00 Sue Costa - External Smokes tobacco daily 2022-10-12 00:00:00 Sue Costa - External Medications Ordered Medication Name Filled Medication Name Start Date Stop Date Current Medication? Ordering Clinician Indication Dosage Frequency Signature (SIG) Comments Components Source hydrOXYzine HCl 25 MG oral Tablet 03-04 00:00: 00 Yes [id number] 25mg Take 1 tablet (25 mg total) [...] 01-11 00:00: 00 03-04 00:00 :00 No [id number] 25mg QD Take 1 tablet (25 mg total) by mouth daily. Sue garcía Propranolol HCl 20 MG oral Tablet 01-11 00:00: 00 03-04 00:00 :00 No [id number] 20mg [id number] 3D Take 1 tablet (20 mg total) by mouth 3 times daily. Sue garcía Clonazepam 0.25 MG oral TABLET DISPERSIBLE 01-11 00:00: 00 03-04 00:00 :00 No [id number] .25mg Q.5D Take 1 tablet (0.25 mg [...] 2022-08 00:00: 00 01-11 00:00 :00 No [id number] TAKE 1 TABLETS BY MOUTH TWICE DAILY [...] 2022-08 00:00: 00 01-11 00:00 :00 No [id number] 25mg QD Take 1 tablet (25 mg total) by mouth daily. Sue garcía Buprenorphi ne HCl-Naloxon e HCl (SUBOXONE SL) 2022-08 08:13: [address] the tongue. Sue garcía Glycopyrrol ate 1 MG oral Tablet 2022-08 00:00: 00 Yes [id number] Start taking 1mg PO BID and increase weekly up to 3mg PO BID PRN as discussed as long as side effects are not too bothersome . Sue garcía Buprenorphi ne HCl-Naloxon e HCl (SUBOXONE SL) 2022-08 21:51: [address] under the tongue. Sue garcía Metoprolol Succinate 25 MG oral TABLET SR 24 HR 2022-08 00:00: 00 Yes [id number] 25mg Take 1 tablet (25 mg total) by mouth daily. Sue garcía Glycopyrrol ate 1 MG oral Tablet 04-18 00:00: 00 06-17 00:00 :00 No [id number] 1mg TAKE 1 TABLET (1 MG TOTAL) BY MOUTH 3 TIMES DAILY Sue garcía Glycopyrrol ate 1 MG oral Tablet 804 00:00: 00 Yes [id number] 1mg Take 1 tablet (1 mg total) [...] 3-06 00:00: 00 06-17 00:00 :00 No [id number] TAKE 1 TABLET BY MOUTH NIGHTLY NEEDED FOR MUSCLE SPASMS. Sue garcía Tizanidine HCl 2 MG oral Tablet 10-12 00:00: 00 Yes [id number] 2mg QD Take 1 tablet (2 mg total) by mouth nightly as needed for muscle spasms Sue garcía Meloxicam 15 MG oral Tablet 10-12 00:00: 00 06-17 00:00 :00 No [id number] 15mg QD Take 1 tablet (15 mg total) by mouth daily as needed for pain Sue garcía molnupiravi r 200 mg capsule 03-05 00:00: 00 Yes [id number] 800mg Take 4 capsules by mouth every 12 (twelve) hours. [facility] Immunizations Ordered Immunization Name Filled Immunization Name Date Status Comments Source SARS-COV-2 COVID-19 PFIZER VACCINE 2021-01-10 00:00:00 Completed [facility] SARS-COV-2 COVID-19 PFIZER VACCINE 2021-01-10 00:00:00 Completed [facility] SARS-COV-2 COVID-19 PFIZER VACCINE 2020-12-13 00:00:00 Completed [facility] SARS-COV-2 COVID-19 PFIZER VACCINE 2020-12-13 00:00:00 Completed [facility] Influenza, Injectable, Mdck, Preservative Free, Quadrivalent Unknown [...] Systolic blood pressure 2022-03-05 17:58:00 137 mm[Hg] [facility] Diastolic blood pressure 2022-03-05 17:58:00 80 mm[Hg] [facility] Heart rate 2022-03-05 17:58:00 105 /min [facility] Body temperature 2022-03-05 17:58:00 37.67 Rosio [facility] Respiratory rate 2022-03-05 17:58:00 18 /min [facility] Body height 2022-03-05 17:58:00 175.3 cm [facility] Body weight 2022-03-05 17:58:00 90.81 kg [facility] BMI 2022-03-05 17:58:00 29.56 kg/m2 [facility] Oxygen saturation in Arterial blood by Pulse oximetry 2022-03-05 17:58:00 98 /min [place] [facility] Procedures Procedure Date / Time Performed Performing Clinicia n Source POCT SARS-COV-2 ANTIGEN (BINAX NOW) 2022-03-05 00:00:00 Madison Borden [facility] Encounters Start Date/Time End Date/Time Encounter Type Admission Type Attending [facility] Care Department Encounter ID Source 2025-05-23 09:45:00 2025-05-23 09:45:00 Outpatient KIM MACK [id number] [facility] 2025-05-23 00:00:00 2025-05-23 00:00:00 Outpatient KIM MACK [id number] [facility] 2025-04-09 00:00:00 2025-04-09 00:00:00 [id number] [facility]25-[facility]-04 08:30:00 2025-03-04 08:30:00 Outpatient KRISTA BOLES [id number] [facility] 2025-02-08 00:00:00 2025-02-08 00:00:00 Outpatient RICCARDO ELLIS [id number] [facility] 2025-01-16 00:00:00 2025-01-16 00:00:00 Outpatient KRISTA BOLES [id number] [facility] 2025-01-13 00:00:00 2025-01-13 00:00:00 Outpatient KRISTA BOLES [id number] Sue [facility] 2025-01-11 08:00:00 2025-01-11 08:00:00 Outpatient KRISTA BOLES SUE KATZ [id number] Sue [facility] 2025-01-10 15:45:00 2025-01-10 15:45:00 Outpatient RAMAN MIKE SUE KATZ [id number] Sue Seybold 2025-01-10 15:00:00 2025-01-10 15:00:00 Outpatient SUE KATZ [id number] Sue Seybold 2025-01-10 00:00:00 2025-01-10 00:00:00 Outpatient MD SUE COWART [id number] Sue Seybold 2025-01-10 00:00:00 2025-01-10 00:00:00 Outpatient RAMANA KRISTA SUE KATZ [id number] Sue Seybold 2023-12-28 08:45:00 2023-12-28 08:45:00 Outpatient SANTOS SUAZO [id number] Sue Seybold 2023-11-10 08:00:00 2023-11-10 08:00:00 Outpatient SANTOS SUAZO [id number] Use [facility] 2023-11-09 15:15:00 2023-11-09 15:15:00 Outpatient TRED47 SUE KATZ [id number] Sue Seybold 2023-11-09 14:00:00 2023-11-09 14:00:00 Outpatient SUE KATZ [id number] Sue Seybold 2023-11-09 09:00:00 2023-11-09 09:00:00 Outpatient SANTOS SUAZO [id number] Sue Seybold 2023-10-18 10:40:00 2023-10-18 10:40:00 Outpatient ANGEL GARCIA [id number] Sue Seybold 2023-09-28 08:00:00 2023-09-28 08:00:00 Outpatient SANTOS SUAZO [id number] Sue Seybold 2023-09-22 00:00:00 2023-09-22 00:00:00 Outpatient HERMINIO BAUER [id number] Sue Seybold 2023-08-16 08:00:00 2023-08-16 08:00:00 Outpatient SANTOS SUAZO SUE KATZ [id number] Sue [facility] 2023-07-20 00:00:00 2023-07-20 00:00:00 Outpatient SUAZOSANTOS DIXON SUE KATZ [id number] Sue [facility] 2023-07-19 11:50:00 2023-07-19 11:50:00 Outpatient FLOOR, MARGAUX SUE KATZ [id number] Sue [facility] 2023-07-19 11:00:00 2023-07-19 11:00:00 Outpatient ANGEL GARCIA [id number] Sue [facility] 2023-07-19 08:30:00 2023-07-19 08:30:00 Outpatient ÁNGELAKAYE DARIAN KATZ [id number] [facility] 2023-07-09 00:00:00 2023-07-09 00:00:00 Outpatient KRISTA BOLES [id number] Sue [facility] 2023-06-28 10:50:00 2023-06-28 10:50:00 Outpatient LAB90 SUE KATZ [id number] [facility] 2023-06-28 08:15:00 2023-06-28 08:15:00 Outpatient SUAZO, SANTOS SUE KATZ [id number] Sue [facility] 2023-06-24 16:00:00 2023-06-24 16:00:00 Outpatient [facility]OL[facility] [id number] [facility] 2023-06-23 00:00:00 2023-06-23 00:00:00 Outpatient [facility] BOL[facility] [id number] [facility] 2023-06-21 00:00:00 2023-06-21 00:00:00 Outpatient [facility]RISTA BOLES [id number] [facility] 2023-06-20 00:00:00 2023-06-20 00:00:00 Outpatient [facility]RISTA BOLES [id number] [facility] 2023-06-17 16:25:2023-06-17 16:25:00 Outpatient LAB90 SUE KATZ [id number] Sue Sey[facility]osea 2023-06-17 15:30:00 2023-06-17 15:30:00 Outpatient RAMANA, KRISTA KATZ [id number] Sue [facility] 2023-06-17 00:00:00 2023-06-17 00:00:00 Outpatient PREZAMini KIM SUE KATZ [id number] Sue [facility] 2023-06-07 00:00:00 2023-06-07 00:00:00 Outpatient PREZAS KIM KATZ [id number] Sue Sey[facility]osea 2023-06-02 00:00:00 2023-06-02 00:00:00 Outpatient RAMANA, KRISTA KATZ [id number] [facility] 2023-05-31 15:30:00 2023-05-31 15:30:00 Outpatient MARY LOU MARTÍNEZ [id number] [facility] 2023-05-26 08:00:00 2023-05-26 08:00:00 Outpatient GABRIELESANTOS SUE KATZ [id number] [facility] 2023-04-16 00:00:00 2023-04-16 00:00:00 Outpatient [facility]RISTA BOLES [id number] [facility] 2023-04-06 08:30:00 2023-04-06 08:30:00 Outpatient SASKIA PURCELL [id number] [facility] 2023-03-30 13:00:00 2023-03-30 13:00:00 Outpatient HUNDOmer, KRISTA KATZ [id number] Sue [facility] 2023-03-29 00:00:00 2023-03-29 00:00:00 Outpatient KRISTA BOLES [id number] Sue [facility] 2023-03-25 16:45:00 2023-03-25 16:45:00 Outpatient LAB90 SUE KATZ [id number] Sue Seybold 2023-03-25 16:00:00 2023-03-25 16:00:00 Outpatient HUNDL, KRISTA KATZ [id number] [facility] 2023-03-23 00:00:00 2023-03-23 00:00:00 Outpatient PREZAS, KIM KATZ SUE [id number] [facility] 2022-11-30 00:00:00 2022-11-30 00:00:00 Outpatient PREZAS, KIM KATZ SUE [id number] [facility] 2022-11-09 15:00:00 2022-11-09 15:00:00 Outpatient PREZAS, KIM KATZ SUE [id number] [facility] 2022-11-02 00:00:00 2022-11-02 00:00:00 Outpatient PREZAS, KIM KATZ SUE [id number] [facility] 2022-11-01 00:00:00 2022-11-01 00:00:00 Outpatient PREZAS, KIM SUE KATZ [id number] [facility] 2022-10-23 00:00:00 2022-10-23 00:00:00 Outpatient PREZAS, KIM KATZ SUE [id number] [facility] 2022-10-12 15:15:00 2022-10-12 15:15:00 Outpatient PREZAS, KIM GOLDFADY KATZ [id number] [facility] 2022-03-05 13:00:00 2022-03-05 13:20:00 Urgent Care Yomairapamela [facility] [id number] [facility] 2022-03-05 13:00:00 2022-03-05 13:00:00 Outpatient R ADDIS [facility] [id number] [facility] 2022-03-05 00:00:00 2022-03-05 00:00:00 Letter (Out) Rioayaka [facility] [id number] [facility] Results Test Description Test Time Test Comments Results Result Co mments Source [facility] Notes Date/Time Note Provider Source 2025-03-04 08:25:43 Chief Complaint Patient presents with Follow-up Follow up on anxiety. He states no change since last visit. He hasn't seen psychiatry. Sleep Problem He hasn't been sleeping well in the past month. Erin Broussard MA [facility] 2025-01-11 08:11:11 Chief Complaint Patient presents with Depression His father yesterday and he is having trouble with stress and depression. Erin Broussard MA [facility] 2023-03-25 16:00:52 Formatting of this n [...] and was sent home. T Violeta Escalante [facility]
--- NOTE | 2025-06-05 19:51 | RAD REPORT ---
EXAM: CT Head Brain Wo Cont HISTORY: HEADACHE COMPARISON: 05/23/[address] and MRI brain TECHNIQUE: Multiple contiguous axial images were obtained for a CT of the brain without contrast. Sag ittal and coronal reformats were performed. One or more of the following dose reduction techniques were used: Automated exposure control, adjus tment of the mA and kV according to patient size, and iterative reconstruction. Unless otherwise specified, incidental findings do not require dedicated imaging follow-up. FINDINGS: No evidence of hydrocephalus, intracranial hemorrhage, or extra-axial fluid collection. The brain is normal in morphology. The calvarium is intact. Moderate inflammatory mucosal thickening within the ethmoidal air cells. Mas toid air cells are essentially clear. IMPRESSION: No evidence of acute intracranial abnormality.
--- NOTE | 2025-06-05 19:56 | RAD REPORT ---
EXAMINATION: CT MAXILLOFACIAL WITHOUT CONTRAST CLINICAL INDICATION: [facility] MAIN FACIAL PAIN Bed Name: 8 TECHNIQUE: Axial images were obtained through the facial bones and orbits without intravenous contras t. Sagittal and coronal reconstructions were created from the data. One or more of the following dose reduction techniques were used: Automated exposure control, adjustment of the mA and/or kV accor ding to patient size, and/or iterative reconstruction. Unless otherwise specified, incidental findings do not require dedicated imaging follow-up. COMPARISON: No prior exam. FINDINGS: SOFT TISSUE: Asymmetric soft tissue swelling along the lower jaw with fat stranding. Dental hardware results in streak artifact which limits evaluation at the level of the oral cavity. BONES: No evidence of fracture, dislocation, or aggressive osseous lesions. No lesion of the visuali zed skull base or calvarium. ORBITS: The globes are intact. No intraorbital hemorrhage or mass. SINUSES: Moderate mucosal thickening along the ethmoidal air cells. Up to moderate mucosal thickening within the maxillary sinuses with polypoidal changes more so on the right, contributing to opacification of the ostiomeatal units bilaterally. Tympanomastoid cavities are predominantly clear. IMPRESSION: Asymmetric left lower jaw soft tissue swelling. Streak artifact related to dental hardware limits carmella luation. No acute osseous abnormality appreciated otherwise. Moderately extensive paranasal sinus inflammatory mucosal thickening as above..
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
[2025-06-05 20:21] VITALS: TEMP 98
[2025-06-05 20:22] VITALS: BP 125/74; O2SAT 99
== END 2025-06-05 20:15 | disposition home or self-care (01) ==
LOC: ER 18:20
DX: S01.511A Laceration without foreign body of lip, initial encounter (principal); V47.5XXA Car driver injured in collision with fixed or stationary object in traffic accident, initial encounter; J01.90 Acute sinusitis, unspecified; Z11.52 Encounter for screening for COVID-19
CPT/HCPCS: 70450; 70486; 76377; 99283

== ENCOUNTER 2025-06-12 10:46 | Emergency (ER) | payer OTHER ==
[2025-06-12] MEDS ORDERED: NA CHLORIDE 0.9% 1,000 ML ONE (11:12)
[2025-06-12] MEDS ORDERED: FOLIC ACID 5 MG/ML VIAL ONE (11:12)
--- NOTE | 2025-06-12 11:37 | RAD REPORT ---
EXAM: Chest Single View HISTORY: 49 years Male COUGH COMPARISON: 05/23/2025 FINDINGS: LUNGS/PLEURA: The lungs are clear. No pleural effusions or pneumothorax. No pulmonary edema. CARDIAC/MEDIASTINUM: The cardiac silhouette is within normal limits. UPPER ABDOMEN: No significant abnormality. BONES: No acute abnormality. LINES/TUBES/OTHER: N/A IMPRESSION: No evidence of acute cardiopulmonary disease.
[2025-06-12 11:38] LABS: Absolute Lymphocytes (CBC) 1.9 K/uL (0.7-4.9); Hematocrit 37.7 % (39.6-49.0); Hemoglobin 12.9 g/dL (13.6-17.9); MCH 31.0 pg (27.0-35.0); MCHC 34.3 g/dL (32.0-36.0); MCV 90.3 fL (80-100); MPV 8.3 fL (7.6-11.3); Nucleated RBC Absolute Count 0.0 (0-0); Nucleated Red Blood Cells % 0.1 % (0-0); RBC Red Blood Cell Count 4.17 M/uL (4.33-5.43); White Blood Count 7.60 thou/uL (4.3-10.9)
[2025-06-12 12:01] LABS: ALT/SGPT 44 U/L (16-61); AST/SGOT 26 U/L (15-37); Albumin 3.5 g/dL (3.4-5.0); Albumin/Globulin Ratio 0.8 (1.1-1.8); Alkaline Phosphatase 94 U/L (45-117); Anion Gap 7.6 mEq/L (5.0-15.0); BUN Blood Urea Nitrogen 20 mg/dL (7-18); C-Reactive Protein 13.20 mg/L (<3.00); Globulin 4.2 g/dL (2.3-3.5); Glucose Level 108 mg/dL (74-106); HDL Cholesterol 34 mg/dL (40-60); LDL Cholesterol, Calculated 42 mg/dL (<130); LDL Cholesterol,Calc NonReport 42; Magnesium 1.8 mg/dL (1.6-2.4); NT PRO-BNP 108 pg/mL (<125); Potassium 3.6 mEq/L (3.5-5.1); Troponin High Sensitivity 9.5 pg/mL (<58.9)
--- NOTE | 2025-06-12 12:04 | RAD REPORT ---
EXAMINATION: Head C Spine Mpr Wo Con CLINICAL INDICATION: Male, 49 years old. DIZZINESS TECHNIQUE: Axial CT images from the skull base to the vertex without intravenous contrast. Axial CT i mages through the cervical spine were obtained without intravenous contrast. Sagittal and coronal reformatted images were created from the data set. Coronal and sagittal reformatted images were creat ed from the data set. One or more of the following dose reduction techniques were used: Automated exposure control, adjustment of the mA and/or kV according to patient size, and/or iterative reconstr uction. Unless otherwise specified, incidental findings do not require dedicated imaging follow-up. [id number]. COMPARISON: No prior exams FINDINGS: Head: INTRACRANIAL: No acute intracranial hemorrhage. No acute large vascular territory infarct. No hydro cephalus. No mass effect or midline shift. No significant white matter disease. VASCULATURE: No visualized abnormalities in the arteries or dural venous sinuses. SCALP/SKULL: No calvarial fracture identified. No acute soft tissue abnormality. SINUSES: The visualized paranasal sinuses are mostly clear. Mucous retention cyst in right maxillary sinus. Cervical spine: ALIGNMENT: The cervical spine has normal alignment without scoliosis or spondylolisthesis. BONE: Vertebral body heights are maintained. No aggressive osseous lesions. DEGENERATIVE: Multilevel cervical spondylosis with evidence of bilateral neural foraminal narrowing. No high grade central spinal stenosis. Neural foraminal narrowing is severe on the left at C6-7 and on the right at C5-6. SOFT TISSUE: No significant abnormalities in the soft tissue of the neck. The visualized lung apices are clear. IMPRESSION: No acute intracranial abnormality. No acute fracture or traumatic malalignment of the cervical spine.
[2025-06-12 12:09] LABS: Bilirubin Indirect, Calculated 0.1 mg/dL (0.2-0.8)
[2025-06-12 12:14] LABS: PT Prothrombin Time 11.9 SECONDS (10-13.0); Protime INR 1.05
--- NOTE | 2025-06-12 12:18 | RAD REPORT ---
EXAM: Chest Abd Pelvis Wo Con CLINICAL INDICATION: Male, 49 years old TRAUMA TECHNIQUE: CT chest, abdomen and pelvis was performed, without IV contrast, as per department protoco l. Axial, sagittal and coronal reconstructions were obtained. One or more of the following dose reduction techniques were used: Automated exposure control, adjustment of the mA and/or kV according to the patient size, and/or iterative reconstruction. Unless otherwise specified, incidental findings do not require dedicated imaging follow-up. [id number]. COMPARISON: No prior exams FINDINGS: The lack of intravenous contrast limits the sensitivity of this exam for evaluation of solid visceral organs, vascular structures, and retroperitoneum. ---THORAX--- LOWER NECK AND CHEST WALL: Visualized thyroid gland and soft tissues are normal. MEDIASTINUM AND LYMPH NODES: No mediastinal mass or fluid collection. Normal size mediastinal, hilar, and axillary lymph nodes. THORACIC AORTA: No thoracic aortic aneurysm. PULMONARY ARTERIES: Caliber is within normal limits. HEART: Normal heart size. Moderate coronary artery calcifications. No significant pericardial effusio n. Aortic valve calcifications. LUNGS AND AIRWAYS: Airways are clear. No evidence of airspace or interstitial process. No suspicious and/or stable pulmonary nodules. PLEURA: No pleural effusion. No pneumothorax. ---ABDOMEN/PELVIS--- UPPER GI: No significant abnormality. LIVER: Hepatic steatosis and probably cirrhosis GALLBLADDER/BILE DUCTS: Dilated common bile duct measuring up to 13 mm.? PANCREAS: No mass, ductal dilation, or louisa-pancreatic fluid. SPLEEN: Unremarkable. ADRENALS: No adrenal masses. KIDNEYS AND URETERS: No hydronephrosis.Limited evaluation for renal lesions in the absence of IV cont rast.No renal calculi. No ureteral calculi. ABDOMINAL AORTA AND OTHER VESSELS: Mild atherosclerotic changes. PERITONEUM: No abnormal free fluid. No free air. LYMPH NODES: No pathologic lymphadenopathy. ABDOMINAL WALL: Small fat containing umbilical hernia. Small fat-containing inguinal hernias. SMALL BOWEL/COLON: Small bowel has normal course and caliber. No colonic wall thickening or pericolon ic inflammatory changes. Appendix absent. URINARY BLADDER: Underdistended but grossly unremarkable. REPRODUCTIVE ORGANS: No pathologic process. ---COMBINED--- MUSCULOSKELETAL: Multilevel degenerative changes in the spine. No acute fracture. Remote right anteri or fifth rib fracture. ADDITIONAL FINDINGS: None. IMPRESSION: No evidence of significant trauma to the chest, abdomen, or pelvis. Dilated common bile duct of uncertain etiology. Suggest correlating with LFTs. Consider MRCP (can be non-emergent) to further evaluate. Hepatic steatosis and probably cirrhosis.
--- NOTE | 2025-06-12 13:05 | RAD REPORT ---
EXAMINATION: US CAROTID DUPLEX CLINICAL INDICATION: , 49 years old. DIZZINESS. TECHNIQUE: Real-time grayscale, color flow and spectral Doppler sonographic images were obtained of t extracranial carotid system using a linear transducer. [id number]. COMPARISON: No prior exam. FINDINGS: RIGHT: Common carotid artery: 120 cm/s Internal carotid artery: 123 cm/s External carotid artery: 74 cm/s Right ICA/CCA ratio: 1.0 Plaque None Vertebral artery Antegrade LEFT: Common carotid artery: 130 cm/s Internal carotid artery: 86 cm/s External carotid artery: 99 cm/s lEFT ICA/CCA ratio: 0.7 Plaque None Vertebral artery Antegrade IMPRESSION: No hemodynamically significant stenosis (greater than 50%) within the extracranial internal carotid [facility].
[2025-06-12 13:45] LABS: Blood Gas Oxyhemoglobin 93.4 % (94.0-97.0); Blood O2 Saturation 95.0 % (92.0-98.5)
[2025-06-12 13:46] LABS: Arterial Blood Carboxyhemoglob 0.0 % (0.0-1.5); Blood Gas Inspired Oxygen 21.0 %
--- NOTE | 2025-06-12 13:48 | RAD REPORT ---
EXAMINATION: Brain Wo Cont CLINICAL INDICATION: Male, 49 years old. TIA TECHNIQUE: Multiplanar multisequence MR images of the brain were obtained without intravenous contras t. Unless otherwise specified, incidental findings do not require dedicated imaging follow-up. [id number]. COMPARISON: 05/23/2025 FINDINGS: INTRACRANIAL: No acute infarct identified. No significant mass effect or midline shift.No hydrocepha miles. Minimal T2/FLAIR hyperintensity in the periventricular white matter. Partially empty sella, typically normal variant. Age appropriate cerebral atrophy. VASCULATURE: Normal signal voids in the larger intracranial arteries and dural venous sinuses. SINUSES: The paranasal sinuses are predominantly clear. No mastoid effusions. BONE: The marrow signal pattern is within normal limits. IMPRESSION: No acute intracranial abnormality. Specifically, no evidence of acute infarct. No significant change from prior.
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
--- NOTE | 2025-06-12 15:44 | EDPHYS ---
Physician Documentation [facility] Name: Ankur Owens Age: 49 yrs Sex: Male : 1975 Arrival Date: 06/12/2025 Time: 10:46 Bed 6 Private MD: ED Physician Addi Mckeon HPI: 06/12 15:33 This 49 yrs old Male presents to ER via Ambulatory with complaints of renetta Dizziness. 15:33 The patient presents with dizziness, generalized weakness. Onset: The symptoms/episode renetta began/occurred 3 day(s) ago. Context: occurred at home, occurred while the patient was usual activity, taxes suboxone. Modifying factors: The symptoms are alleviated by nothing, the symptoms are aggravated by nothing. Associated signs and symptoms: Pertinent positives: sleepy, weak all over , takes suboxone. Severity of symptoms: At their worst the symptoms were mild in the emergency department the symptoms are unchanged. Patient's baseline: Neuro: alert and fully oriented. The patient has experienced similar episodes in the past, multiple times. Historical: - PMHx: 10:56 [place] DEE-NI'; bp - PSHx: 10:56 Appendectomy; bp - Immunization history:: Adult Immunizations up to date. - Infectious Disease History:: Denies. - Social history:: Smoking status: unknown. - Family history:: not pertinent. ROS: 15:33 Constitutional: Negative for fever, chills, and weight loss, Eyes: Negative for injury, renetta pain, redness, and discharge, ENT: Negative for injury, pain, and discharge, Neck: Negative for injury, pain, and swelling, Cardiovascular: Negative for chest pain, palpitations, and edema, Respiratory: Negative for shortness of breath, cough, wheezing, and pleuritic chest pain, Abdomen/GI: Negative for abdominal pain, nausea, vomiting, diarrhea, and constipation, Back: Negative for injury and pain, : Negative for injury, bleeding, discharge, and swelling, MS/Extremity: Negative for injury and deformity, Skin: Negative for injury, rash, and discoloration, Psych: Negative for depression, anxiety, suicide ideation, homicidal ideation, and hallucinations, Allergy/Immunology: Negative for hives, rash, and allergies, Endocrine: Negative for neck swelling, polydipsia, polyuria, polyphagia, and marked weight changes, Hematologic/Lymphatic: Negative for swollen nodes, abnormal bleeding, and unusual bruising, 15:33 Neuro: Positive for altered mental status, dizziness, weakness, non focal, 15:33 Psych: Negative for anxiety, depression, auditory hallucinations, visual hallucinations, Exam: 15:33 Constitutional: This is a well developed, well nourished patient who is awake, alert, renetta and in no acute distress. Head/Face: Normocephalic, atraumatic. Eyes: Pupils equal round and reactive to light, extra-ocular motions intact. Lids and lashes normal. Conjunctiva and sclera are non-icteric and not injected. Cornea within normal limits. Periorbital areas with no swelling, redness, or edema. ENT: Nares patent. No nasal discharge, no septal abnormalities noted. Tympanic membranes are normal and external auditory canals are clear. Oropharynx with no redness, swelling, or masses, exudates, or evidence of obstruction, uvula midline. Mucous membranes moist. Neck: Trachea midline, no thyromegaly or masses palpated, and no cervical lymphadenopathy. Supple, full range of motion without nuchal rigidity, or vertebral point tenderness. No Meningismus. Chest/axilla: Normal chest wall appearance and motion. Nontender with no deformity. No lesions are appreciated. Cardiovascular: Regular rate and rhythm with a normal S1 and S2. No gallops, murmurs, or rubs. Normal PMI, no JVD. No pulse deficits. Respiratory: Lungs have equal breath sounds bilaterally, clear to auscultation and percussion. No rales, rhonchi or wheezes noted. No increased work of breathing, no retractions or nasal flaring. Abdomen/GI: Soft, non-tender, with normal bowel sounds. No distension or tympany. No guarding or rebound. No evidence of tenderness throughout. Back: No spinal tenderness. No costovertebral tenderness. Full range of motion. Male : Normal genitalia with no discharge or lesions. Skin: Warm, dry with normal turgor. Normal color with no rashes, no lesions, and no evidence of cellulitis. MS/ Extremity: Pulses equal, no cyanosis. Neurovascular intact. Full, normal range of motion., bilateral aka Psych: Awake, alert, with orientation to person, place and time. Behavior, mood, and affect are within normal limits. 15:33 ECG was reviewed by the Attending Physician. 15:33 Musculoskeletal/extremity: DVT Exam: No signs of deep vein thrombosis. no pain, no swelling, no tenderness, negative Homans' sign noted on exam, no appreciated bluish discoloration, no erythema, no increased warmth, 15:33 Neuro: Orientation: is normal, appropriate for stated age, no acute changes, Mentation: slow to respond, Memory: appropriate for stated age, no acute changes, Cranial nerves: is grossly normal based on the patient's age, no acute changes, Cerebellar function: is grossly normal, is grossly normal based on the patient's age, no acute changes, Motor: no acute changes, moves all fours, strength is 5/5 in all extremities, Sensation: no obvious gross deficits, appropriate no acute changes, Gait: not tested. Deep tendon reflexes are 2+ (normal) in the bilateral brachioradialis, bicep, tricep and patellar and Achilles tendons, Babinski testing is normal, seizure activity, is not displayed by the patient, Vital Signs: 10:55 BP 125 / 86; Pulse 96; Resp 16; Temp 98; Pulse Ox 97% ; bp 13:00 BP 125 / 85; Pulse 74; Resp 12; Temp 97.1; Pulse Ox 99% on 2 lpm NC; Pain 6/10; zm 16:05 BP 129 / 80; Pulse 78; Resp 14; Pulse Ox 97% on R/A; cm10 13:00 Pain Scale: Adult zm NIH Stroke Scale Scores: 15:33 NIHSS Score: 0 renetta Emili Coma Score: 13:03 Eye Response: spontaneous(4). Motor Response: obeys commands(6). Verbal Response: zm oriented(5). Total: 15. 15:33 Eye Response: spontaneous(4). Motor Response: obeys commands(6). Verbal Response: renetta oriented(5). Total: 15. MDM: 11:07 Medical Screening Exam initiated renetta 15:40 Differential diagnosis: cardiac arrhythmia, CVA, generalized weakness, GI bleed, renetta hyperventilation, hypovolemia, , TIA, vertigo. Data reviewed: vital signs, nurses notes, lab test result(s), EKG, radiologic studies, plain films. Consideration of Admission/Observation Escalation of care including admission/observation considered. I considered the following discharge prescriptions or medication management in the emergency department Medications were administered in the Emergency Department. See MAR. Independent interpretation of the following test(s) in the Emergency Department EKG: See my EKG interpretation above. Test considered but Not performed: CT: no cta's head and neck. Historians other than the Patient: pt well informed. Care significantly affected by the following chronic conditions: Obesity, vaper, smoking , chronic pain , suboxone therapy. Counseling: I had a detailed discussion with the patient and/or guardian regarding the historical points, exam findings, and any diagnostic results supporting the discharge/admit diagnosis, lab results, radiology results, the need for outpatient follow up, for definitive care, a family practitioner, a paint spraying machine operator helper, a psychiatrist. 06/12 11:09 Order name: Basic Metabolic Panel; Complete Time: 13:51 renetta 06/12 11:09 Order name: CBC with Diff; Complete Time: 13:51 renetta 06/12 11:09 Order name: LFT's; Complete Time: 13:51 renetta 06/12 11:09 Order name: Magnesium; Complete Time: 13:51 renetta 06/12 11:09 Order name: NT PRO-BNP; Complete Time: 13:51 renetta 06/12 11:09 Order name: PT-INR; Complete Time: 13:51 renetta 06/12 11:09 Order name: Troponin HS; Complete Time: 13:51 renetta 06/12 11:09 Order name: Lipid Profile; Complete Time: 13:51 renetta 06/12 11:09 Order name: CRP; Complete Time: 13:51 renetta 06/12 11:09 Order name: ABG; Complete Time: 13:51 renetta 06/12 11:09 Order name: XRAY Chest (1 view); Complete Time: 13:51 renetta 06/12 11:11 Order name: US Carotid Artery Bilateral; Complete Time: 13:51 renetta 06/12 11:39 Order name: Chest Abd Pelvis Wo Con; Complete Time: 13:51 EDMS 06/12 11:40 Order name: Head C Spine Mpr Wo Con; Complete Time: 13:51 EDMS 06/12 11:49 Order name: Brain Wo Cont; Complete Time: 13:51 EDMS 06/12 11:09 Order name: Cardiac monitoring; Complete Time: 13:02 renetta 06/12 11:09 Order name: EKG - Nurse/Tech; Complete Time: 12:42 renetta 06/12 11:09 Order name: IV Saline Lock; Complete Time: 11: [facility] 06/12 11:09 Order name: Labs collected and sent; Complete Time: : [facility] 06/12 11: Order name: O2 Per Protocol; Complete Time: [facility] 06/12 11: Order name: O2 Sat Monitoring; Complete Time: : [facility] EC:33 Rate is 83 beats/min. Rhythm is regular. QRS [place] is Normal. [place] interval is normal. QRS renetta interval is normal. QT interval is normal. No Q waves. T waves are Normal. No ST changes noted. Clinical impression: NSR w/ Non-specific ST/T Changes and No evidence of ischemia. Interpreted by me. Reviewed by me. Administered Medications: 11: Drug: foLIC Acid IVPB 1 mg IVPB once Route: IVPB; Site: left wrist; zm 11:20 Drug: NS 0.9% IV 1000 ml IV at 1 bolus Per protocol; to be given as a bolus over 60 zm minutes Route: IV; Rate: 1 bolus; Site: left wrist; 15:24 CANCELLED (Duplicate Order): [id number] mg IVP once renetta 15:24 CANCELLED (Duplicate Order): [id number] mg PO once renetta 16:27 Not Given (Patient Refused): aspirinchewable tablet 81 mg PO once ss Disposition Summary: 06/12/25 15:44 Discharge Ordered Notes: Location: Home renetta Problem: new renetta Symptoms: have improved renetta Condition: Stable renetta Diagnosis - Adverse effect of other drugs, medicaments and biological substances - SUBOXONE renetta - Dizziness and giddiness renetta - Weakness renetta - Adverse effect of other narcotics - SUBOXONE renetta Followup: renetta - With: Private Physician - When: 2 - 3 days - Reason: Recheck today's complaints, Continuance of care, Re-evaluation by your physician Followup: renetta - With: José Miguel Miller MD - When: 2 - 3 days - Reason: Recheck today's complaints, Re-evaluation by your physician Followup: renetta - With: Srikanth Pavon DO - When: 2 - 3 days - Reason: Recheck today's complaints, Continuance of care, Re-evaluation by your physician Followup: renetta - With: Josr Agosto MD - When: 2 - 3 days - Reason: Recheck today's complaints, Re-evaluation by your physician Discharge Instructions: - Discharge Summary Sheet renetta - Dizziness renetta - Weakness renetta - Weakness, [id number] renetta - Aspirin and Your Heart renetta - Deconditioning renetta Forms: - Medication Reconciliation Form renetta - Antibiotic Education renetta - Prescription Opioid Use renetta - Patient Portal Instructions renetta - Leadership Thank You Letter renetta Critical care time excluding procedures: 15:42 Critical care time: Bedside Care: 25 minutes, Consultation: 10 minutes, Family renetta Intervention: 10 minutes. Total time: 45 minutes NIH Stroke Scale - NIH Stroke Score Date: 06/12/2025 Time: 15:33 Total Score = 0 10. Dysarthria (speech clarity - read or repeat words) - 0(Normal) 11. Extinction and Inattention (visual/tactile/auditory/spatial/personal) - 0(No abnormality) 1a. Level of Consciousness (LOC) - 0(Alert) 1b. Level of Consciousness (LOC) (Month \T\ Age) - 0(Both) 1c. LOC Commands (Open \T\ Closes Eyes/Rug Layer) - 0(Both) 2. Best Gaze (Lateral Gaze Paresis) - 0(Normal) 3. Visual Field Loss - 0(No visual loss) 4. Facial Palsy - 0(Normal) 5a. Left Arm: Motor (10-second hold) - 0(No drift) 5b. Right Arm: Motor (10-second hold) - 0(No drift) 6a. Left Leg: Motor (5-second hold - always test supine) - 0(No drift) 6b. Right Leg: Motor (5-second hold - always test supine) - 0(No drift) 7. Limb Ataxia (finger/nose \T\ heel/doan - test with eyes open) - 0(Absent) 8. Sensory Loss (pinprick arms/legs/face) - 0(Normal) 9. Best Language: Aphasia (description/naming/reading) - 0(No aphasia) Initials: renetta Signatures: Dispatcher [employer] EDAddi Porter MD MD cha Peltier, Brian, RN RN Yanira Epps RN RN zm Blanchard, Shelby RN ss Corrections: (The following items were deleted from the chart) 11:10 11:10 MR STROKE PROTOCOL+MRI.RAD.BRZ ordered. EDMS EDMS 11:10 11:10 Arterial Blood Gas+RC.LAB.BRZ ordered. EDMS EDMS 11:39 11:34 Head C Spine Cap Wo Con+CT.RAD.BRZ ordered. EDMS EDMS 11:40 11:11 Head Brain Wo Cont+CT.RAD.BRZ ordered. EDMS EDMS 15:24 15:24 hydrALAZINE IVP 10 mg IVP once ordered. renetta renetta 15:24 15:24 hydrALAZINE PO 10 mg PO once ordered. renetta renetta
[2025-06-12] MEDS ORDERED: ASPIRIN 81 MG CHEWABLE TABLET ONE (15:57)
[2025-06-12 18:47] VITALS: TEMP 97.1
[2025-06-12 18:48] VITALS: BP 129/80; O2SAT 97
== END 2025-06-12 16:12 | disposition home or self-care (01) ==
LOC: ER 10:46
DX: R42 Dizziness and giddiness (principal); R53.1 Weakness; T40.495A Adverse effect of other synthetic narcotics, initial encounter
CPT/HCPCS: 93005; 85025; 80048; 36415; 83735; 85610; 80061; 80076; 84484; 83880; 86140; 70450; 71250; 72125; 74176; 71045; 93880; 70551; 82805; 36600; J7030; 96374; 99285